=== PATIENT | female | born 1955 | race Caucasian/White ===

== ENCOUNTER 2020-03-28 09:20 | Inpatient (IN) | payer OTHER ==
[~2020-03-28] VITALS: Ht 154.9 cm; Wt 61.2 kg
--- NOTE | ~2020-03-28 | DS ---
[facility] [address], [place] [address] Draft ADMISSION DATE: 03/28/2020 DISCHARGE DATE: 03/31/2020 REASON FOR ADMISSION: This 64-year-old white woman is a patient of Dr. Espinal in [facility] generally. I had seen her over a month ago anticipating colonoscopy for intractable diarrhea. Due to the COVID epidemic, schedule of her procedure has been delayed. She is concurrently noted to have hyperthyroidism under the care of Dr. Carrasco, reproduction technician in [place], [place]. Management has included methimazole for thyroid suppression over the past 1-1/2 years. To her knowledge, there is no plan of definitive treatment of radioactive iodine ablation or surgery. Her diarrhea has previously been considered likely related to hyperthyroidism. I recently performed thyroid function tests on her including TSH, T4 and T3, which did not show thyrotoxicosis from a chemical basis. She was feeling markedly dehydrated with intractable diarrhea and on that basis, called me and I directly admitted to the hospital for further evaluation and treatment to include management of her dehydration. PAST MEDICAL HISTORY: In addition to hyperthyroidism with methimazole suppression includes cholecystectomy in the past. PERTINENT PHYSICAL EXAMINATION: GENERAL: A pleasant white woman, who was not severely distressed after 2 L of crystalloid solution. VITAL SIGNS: Temperature is 97.5, pulse 60, blood pressure 156/62, O2 saturations 100% on room air. NECK: Normal. CHEST: Clear. HEART: Regular without murmur. ABDOMEN: Nondistended and nontender. LABORATORY DATA: White count 7.5, hematocrit 39.6, platelets 253,000, lymphocytes 16.4. Chem profile as noted. Subsequent labs including coronavirus was negative and C difficile assessment negative as well. HOSPITAL COURSE: PATIENT NAME: SELENA WISE DISCHARGE SUMMARY DATE OF : 55 REPORT #: [id number] PHYSICIAN: CHELSY HIGGINBOTHAM MD PCP: KRISTAL ESPINAL MD REPORT IS CONFIDENTIAL AND NOT TO BE RELEASED WITHOUT AUTHORIZATION [facility] [address], [place] [address] Draft It was acknowledged that the patient had a history at one time of C difficile, which was treated and considered cured. I thought that this may represent a C difficile recurrence was considered and on that basis, stool studies were obtained. A colonoscopy had been anticipated previously for evaluation of her diarrhea as well. A thought of hyperthyroidism accounting for diarrhea was also considered. However, her thyroid function tests recently obtained were normal and that was considered quite a bit less likely. Review of the literature showed methimazole do not have a high chance of causing diarrhea either. She was aggressively fluid resuscitated and ultimately underwent colonoscopy, which included visualization of the entire colon and the terminal ileum. There was no lesion to account for diarrhea based on that evaluation. Biopsies were obtained to assess for microscopic colitis. She was treated with Questran 4 g p.o. q.i.d., which did help her symptoms quite a bit. Mindful that she has had cholecystectomy and the possibility of choleretic diarrhea was considered relatively high. By the time of discharge, she is ambulating well, tolerating a regular diet, has cleared her clinical dehydration. C difficile assessment was negative. COVID-19 testing was negative and celiac disease panel (gluten enteropathy panel) is still pending. She is due to see her reproduction technician, Dr. Carrasco on Friday. I am hopeful that a summary will be available regarding her visit at that time as well and I have given the patient a business card to help assist in transmitting that information. FOLLOWUP PLAN: She will return to see me in approximately 10 days. By then pathology report and celiac disease panel will have returned. We will assess the durability of her improvement with Questran administration as well. DISCHARGE MEDICATIONS: 1. Cholestyramine 4 g p.o. q.i.d., #1 20 packets or preferably a jar with refills as needed. 2. Methimazole 5 mg p.o. q.2 days at bedtime. 3. Metoprolol 100 mg p.o. b.i.d. 4. Lisinopril hydrochlorothiazide 08/28.5 two tabs p.o. daily. 5. Simvastatin 2 mg p.o. daily at bedtime. 6. Alprazolam 0.5 mg tablets q.8 hours as needed for anxiety. 7. Zyrtec 1 tab p.o. daily. 8. Dicyclomine 20 mg p.o. q.i.d. as needed for GI upset. 9. Fluticasone spray two sprays daily for allergy relief. 10. Nexium 1 cap p.o. daily. 11. Lactaid 3000 unit tablet t.i.d. with meals. PATIENT NAME: SELENA WISE DISCHARGE SUMMARY DATE OF : 55 REPORT #: [id number] PHYSICIAN: CHELSY HIGGINBOTHAM MD PCP: KRISTAL ESPINAL MD REPORT IS CONFIDENTIAL AND NOT TO BE RELEASED WITHOUT AUTHORIZATION [address] [address] Draft DISCHARGE DIAGNOSES: 1. Diarrhea with electrolyte disturbance (hypokalemia) related to protracted diarrhea, uncertain etiology. 2. History of hyperthyroidism, controlled currently on methimazole. 3. Anxiety. 4. Hypertension. 5. Dyslipidemia. 6. History of cholecystectomy. MD WENDI Braga/GUERITA /[id number] cc: MD Kristal Heredia MD Copies: NYASIA CARRASCO MD, JONATHAN MD ~ PATIENT NAME: SELENA WISE DISCHARGE SUMMARY DATE OF : 55 REPORT #: [id number] PHYSICIAN: CHELSY HIGGINBOTHAM MD PCP: KRISTAL ESPINAL MD REPORT IS CONFIDENTIAL AND NOT TO BE RELEASED WITHOUT AUTHORIZATION
--- OUTSIDE RECORDS SUMMARY | ~2020-03-28 | XMS | Encounter Summary ---
Demographics + + + | Address | [address] | | | [place] [address] | + + + | Home Phone | | + + + | Preferred Language | Unknown | + + + | Marital Status | | + + + | Jew Affiliation | Unknown | + + + | Race | Unknown | + + + | Ethnic Group | Unknown | + + + Author + + + | Author | [facility] | | | and [place] | + + + | Organization | [facility] | | | and [place] | + + + | Address | Unknown | + + + | Phone | Unavailable | + + + Support + + +---------+ + | Name | Relationship | Address | Phone | + + +---------+ + | Dre Cutler | ECON | Unknown | | + + +---------+ + Care Team Providers + +------+ + | Care Engraver Pantograph Name | Role | Phone | + +------+ + | Cristian Espinal | PCP | | | MD | | | + +------+ + Reason for Referral Evaluate & Treat (Urgent) +--------+ + + + + + | Status | Reason | Specialty | Diagnoses / | Referred By | Referred To | | | | | Procedures | Contact | Contact | +--------+ + + + + + | Closed | Specialty | Gastroenterol | Diagnoses | [facility] | [facility]ia, | | | Services | ogy | Abdominal | MD Jesus | MD Jesus | | | Required | | pain, | [address] | [address] | | | | | unspecified | [address]VD | [place], | | | | | site Loss | [place], [place] | [place] [address] | | | | | of weight | [address] | Phone: | | | | | Diarrhea | Phone: | [phone] | | | | | Procedures | [phone] | Fax: | | | | | CO | Fax: | [phone] | | | | | COLONOSCOPY, | [phone] | | | | | | DIAGNOSTIC | | | | | | | CO | | | | | | | COLONOSCOPY, | | | | | | | BIOPSY CO | | | | | | | COLONOSCOPY, | | | | | | | REMV | | | | | | | BURT HERNANDEZ | | | +--------+ + + + + + Diagnostic/Screening (Routine) +--------+--------+ + + + + | Status | Reason | Specialty | Diagnoses / | Referred By | Referred To | | | | | Procedures | Contact | Contact | +--------+--------+ + + + + | Closed | | Radiology | Diagnoses | [place], | [address] | | | | | Abdominal | MD Jesus | [address] | | | | | pain, | [address] | [place], | | | | | unspecified | [address] | [place] [address] | | | | | site Loss | [place], [place] | Phone: | | | | | of weight | [address] | [phone] | | | | | Diarrhea | Phone: | Fax: | | | | | Procedures | [phone] | [phone] | | | | | CT Abdomen | Fax: | | | | | | Pelvis w | [phone] | | | | | | Contrast | | | +--------+--------+ + + + + Reason for Visit + + + | Reason | Comments | + + + | Follow-up | | + + + Evaluate & Treat (Routine) +--------+--------+ + + + + | Status | Reason | Specialty | Diagnoses / | Referred By | Referred To | | | | | Procedures | Contact | Contact | +--------+--------+ + + + + | Closed | | Gastroenterol | Diagnoses | Teddy, | [facility]ia, | | | | ogy | IBS, GERD, | Cristian | MD Jesus | | | | | Reflux/ pcp | MD Jesus | [address] | | | | | Teddy/ pt/ | [address] | [place], | | | | | [place] | [address] | [place] [address] | | | | | Procedures | Penny, | Phone: | | | | | OFFICE VISIT | [place] | [phone] | | | | | REGULAR | [address] | Fax: | | | | | | Phone: | [phone] | | | | | | [phone] | | | | | | | Fax: | | | | | | | [phone] | | +--------+--------+ + + + + Encounter Details +--------+---------+ + + + | Date | Type | Department | Care Team | Description | +--------+---------+ + + + | 07/05/ | Office | [facility] | Jesus Fletcher MD | Abdominal pain, | | 2013 | Visit | GASTROENTEROLOGY | [address] | unspecified site | | | | [address] | [place], [place] | (Primary Dx); Loss | | | | [address] [place], [place] | [address] | of weight; Diarrhea | | | | [address] | [phone] | | | | | [phone] | | | +--------+---------+ + + + Social History + +-------+ +--------+------+ | Tobacco Use | Types | Packs/Day | Years | Date | | | | | Used | | + +-------+ +--------+------+ | Never Smoker | | | | | + +-------+ +--------+------+ + +---+---+---+ | Smokeless Tobacco: | | | | | Never Used | | | | + +---+---+---+ + + +---------+ + | Alcohol Use | Drinks/Week | oz/Week | Comments | + + +---------+ + | No | | | | + + +---------+ + + + + | Sex Assigned at | Date Recorded | | | | + + + | Not on file | | + + + + + + + | Job Start Date | Occupation | Industry | + + + + | Not on file | Not on file | Not on file | + + + + + + + + | Travel History | Travel Start | Travel End | + + + + + + | No recent travel history available. | + + documented as of this encounter Last Filed Vital Signs + + + + + | Vital Sign | Reading | Time Taken | Comments | + + + + + | Blood Pressure | 112/70 | 07/05/2014 12:53 PM | | | | | PDT | | + + + + + | Pulse | 64 | 07/05/2014 12:53 PM | | | | | PDT | | + + + + + | Temperature | 37.1 C (98.7 F) | 07/05/2014 12:53 PM | | | | | PDT | | + + + + + | Respiratory Rate | 14 | 07/05/2014 12:53 PM | | | | | PDT | | + + + + + | Oxygen Saturation | - | - | | + + + + + | Inhaled Oxygen | - | - | | | Concentration | | | | + + + + + | Weight | 56.7 kg (125 lb) | 07/05/2014 12:53 PM | | | | | PDT | | + + + + + | Height | 162.6 cm (5' 4") | 07/05/2014 12:53 PM | | | | | PDT | | + + + + + | Body Mass Index | 21.46 | 07/05/2014 12:53 PM | | | | | PDT | | + + + + + documented in this encounter Progress Notes Jesus Fletcher MD - 07/05/2014 1:46 PM PDT Subjective: Patient ID: Desire Cutler is a 59 y.o. female. HPI Current Outpatient Prescriptions on File Prior to Visit Medication Sig Dispense Refill ALPRAZolam (XANAX) 0.5 mg tablet Take 0.5 mg by mouth Twice daily as needed. B Okfgvvx-F-Hkcga Acid (B COMPLEX + C TR PO) Take by mouth Daily. CETIRIZINE HCL PO Take by mouth. CRANBERRY Take 2 tablets by mouth Daily. dicyclomine (BENTYL) 10 mg capsule Take 1-2 capsules every 6 hours as needed for abdomi nal cramping 100 capsule 3 estradiol (ESTRACE) 1 mg tablet Take 1 mg by mouth Daily. eszopiclone (LUNESTA) 2 MG TABS Take 2 mg by mouth nightly. fluticasone (FLONASE) 50 mcg/nasal spray 1 spray by Nasal route Daily. lisinopril-hydrochlorothiazide (PRINZIDE,ZESTORETIC) 10-12.5 MG per tablet Take 1 table t by mouth Daily. metoprolol (LOPRESSOR) 100 MG tablet Take 100 mg by mouth 2 times daily. MULTIPLE VITAMIN PO Take by mouth Daily. ondansetron (ZOFRAN) 4 mg tablet Take 1 tablet by mouth every 8 hours as needed for Rob sea. 20 tablet 0 simvastatin (ZOCOR) 40 mg tablet Take 40 mg by mouth nightly. UNABLE TO FIND Med Name: digestive advantage lactose defense zolpidem (AMBIEN) 10 mg tablet Take 10 mg by mouth nightly as needed. 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) Essential hypertension, benign Allergic rhinitis due to pollen Sprain of neck Postcholecystectomy syndrome GERD (gastroesophageal reflux disease) IBS (irritable bowel syndrome) Past Surgical History Procedure Date Appendectomy Cholecystectomy 2009 Hysterectomy, total abdominal Abdomino-vaginal vesical neck suspension section, classic Bunionectomy bilateral Other 2009, 2012 bilateral thumb surgery Colonoscopy 2009 Dr Plum[place] in [place] Family History Problem Relation Age of Onset Heart disease Father Heart attack Father Hypertension Mother History Social History Marital Status: Spouse Name: N/A Number of Children: N/A Years of Education: 13 Occupational [employer] Social History Main Topics Smoking status: Never Smoker Smokeless tobacco: Never Used Alcohol Use: No Drug Use: Yes Special: Marijuana Sexually Active: Not on file Other Topics Concern Not on file Social History Narrative No narrative on file Review of Systems Constitutional: Positive for unexpected weight change. HENT: Negative. Eyes: Negative. Respiratory: Negative. Cardiovascular: Negative. Gastrointestinal: Abd pain; diarrhea Genitourinary: Negative. Musculoskeletal: Negative. Neurological: Negative. Hematological: Negative. Objective: Physical Exam Constitutional: She is oriented to person, place, and time. She appears well-developed and well-nourished. HENT: Head: Normocephalic and atraumatic. Eyes: Conjunctivae normal are normal. Neck: Neck supple. Cardiovascular: Normal rate, regular rhythm and normal heart sounds. Pulmonary/Chest: Effort normal and breath sounds normal. Abdominal: Soft. Bowel sounds are normal. Neurological: She is alert and oriented to person, place, and time. Skin: Skin is warm and dry. Psychiatric: She has a normal mood and affect. Her behavior is normal. Judgment and thought content normal. Assessment: This office note has been dictated. Plan: This office note has been dictated. Jesus Dickson MD - 0 07/05/2014 12:00 AM PDT GASTROENTEROLOGY [address] [place] [address] FAX: [phone] OFFICE VISIT OUTPATIENT GI FOLLOWUP EVALUATION HISTORY OF PRESENT ILLNESS: This is a 59-year-old white female with a history of irritable bowel syndrome and C diff colitis, who presents for a followup. The patient has had irritab le bowel with associated abdominal pain that the patient describes as gas and bloating. How ever, she does describe a new type of pain in the right lower quadrant, which is intermitte nt for the past 6 to 8 months. The pain is not better or worse by anything in particular an d is unaffected by eating or by activity. The patient denies fevers, chills, sweats, but do es have intermittent diarrhea. She has been diagnosed with C diff in the past and completed a dose of Flagyl last month. Recent stool studies after the course of Flagyl have been neg ative for C diff, and the patient states that she feels a little better with no diarrhea no w for 3-4 days, but states that loose stools are intermittent and some days she can have 3- 4 loose stools a day. She also complains of approximately a 20-pound weight loss in the pas t year, some of which may be intentional in that she is walking, exercising, and has change d her diet. She otherwise denies melena, hematochezia. Her last colonoscopy was approximate ly 4 years ago, at which time a few polyps were taken off. Of note, the patient states that the pain does awaken her night at times. ASSESSMENT AND PLAN 1. ABDOMINAL PAIN: Unclear etiology, however, differential diagnosis includes irritable bow el syndrome, neoplasm malignant versus benign, inflammatory bowel disease, especially Crohn 's disease. I recommend that we repeat colonoscopy to evaluate for Crohn's disease as well as a recurrence of the polyps on the right side. I also feel that we need to get a CT scan of the abdomen and pelvis with contrast, if the colonoscopy is unremarkable. Indications, r isks, benefits, and possible complications were discussed with the patient, who wishes to p roceed with colonoscopy at this time. Will also check routine labs, including CBC, chem donaldson el, and sedimentation rate and a CRP. 2. DIARRHEA: Most likely related to irritable bowel syndrome, diarrhea predominant. However , will obtain random colon biopsies to evaluate for microscopic colitis during colonoscopy. Otherwise, would continue colestyramine as well as Imodium p.r.n. Jesus Fletcher MD / JAIME JOB #: [id number] signed by Jesus Fletcher MD at 07/06/2014 2:03 PM PDTdocument ed in this encounter Plan of Treatment + +---------+--------+ + + | Name | Type | Priori | Associated Diagnoses | Order Schedule | | | | ty | | | + +---------+--------+ + + | CT Abdomen Pelvis w | Imaging | Routin | Abdominal pain, | Expected: | | Contrast | | e | unspecified site | 07/05/2014, Expires: | | | | | Loss of weight | 07/05/2015 | | | | | Diarrhea | | + +---------+--------+ + + + + +--------+ + + | Name | Type | Priori | Associated Diagnoses | Order Schedule | | | | ty | | | + + +--------+ + + | Ambulatory referral | Outpatient | Routin | Abdominal pain, | Expected: | | to Gastroenterology | Referral | e | unspecified site | 07/07/2014, Expires: | | ([facility]) | | | Loss of weight | 07/05/2015 | | | | | Diarrhea | | + + +--------+ + + documented as of this encounter Results Comprehensive Metabolic Panel (07/05/2014 1:56 PM PDT) + + + + + + | Component | Value | Ref Range | Performed | Pathologist | | | | | At | Signature | + + + + + + | Na | 135 (L) | 136 - 149 | [facility] | | | | | mmol/L | [facility] | | | | | | [facility] | | | | | | [facility] - | | | | | | LABORATORY | | + + + + + + | K | 3.3 (L) | 3.5 - 5.1 | [facility] | | | | | mmol/L | [facility] | | | | | | [facility] | | | | | | [facility] - | | | | | | LABORATORY | | + + + + + + | Cl | 98 | 98 - 109 mmol/L | [facility] | | | | | | [facility] | | | | | | [facility] | | | | | | [facility] - | | | | | | LABORATORY | | + + + + + + | CO2 | 29 | 24 - 31 mmol/L | [facility] | | | | | | [facility] | | | | | | [facility] | | | | | | [facility] - | | | | | | LABORATORY | | + + + + + + | Anion Gap | 8 | 3 - 16 mmol/L | [facility] | | | | | | [facility] | | | | | | [facility] | | | | | | [facility] - | | | | | | LABORATORY | | + + + + + + | Glucose | 98 | 70 - 109 mg/dL | [facility] | | | | | | [facility] | | | | | | [facility] | | | | | | [facility] - | | | | | | LABORATORY | | + + + + + + | BUN | 9 | 7 - 18 mg/dL | [facility] | | | | | | [facility] | | [facility] | | | [facility] | | | | | | [facility] - | | | | | | LABORATORY | | + + + + + + | Creatinine | 0.74 | 0.60 - 1.30 | [facility] | | | | | mg/dL | [facility] | | | | | | [facility] | | | | | | C[facility] - | | | | | | LABORATORY | | + + + + + + | eGFR if not | >60Comment: GLOMERULAR | >=60 | [facility] | | | | FILTRATION | mL/min/1.73m2 | [facility] | | | RWANDAN | RATE,ESTIMATED | | MEDICAL | | | | mL/min/1.69c0Zmko than | | CENTER - | | | | 60 Chronic kidney | | LABORATORY | | | | disease,if found over a | | | | | | 3-month period.Less than | | | | | | 15 Kidney failureFor | | | | | | | | | | | | Americans,multiply the | | | | | | calculated GFR by 1.21. | | | | | | | | | | + + + + + + | Calcium | 9.3 | 8.3 - 10.5 | [facility] | | | | | mg/dL | [facility] | | | | | | [facility] | | | | | | C[facility] - | | | | | | LABORATORY | | + + + + + + | Albumin | 4.1 | 3.2 - 5.0 g/dL | [facility] | | | | | | [facility] | | | | | | [facility] | | | | | | [facility] - | | | | | | LABORATORY | | + + + + + + | Bilirubin | 0.7 | 0.1 - 1.5 mg/dL | [facility] | | | Total | | | [facility] | | | | | | [facility] | | | | | | C[facility] - | | | | | | LABORATORY | | + + + + + + | Total | 7.7 | 6.0 - 7.8 g/dL | [facility] | | | Protein | | | [facility] | | | | | | [facility]ICAL | | | | | | CENTER - | | | | | | LABORATORY | | + + + + + + | AST | 25 | 10 - 42 U/L | [facility] | | | | | | [facility] | | | | | | [facility] | | | | | | CENTER - | | | | | | LABORATORY | | + + + + + + | ALT | 20 | 6 - 45 U/L | [facility] | | | | | | [facility] | | | | | | [facility] | | | | | | CENTER - | | | | | | LABORATORY | | + + + + + + | Alkaline | 68 | 40 - 110 U/L | [facility] | | | Phosphatase | | | [facility] | | | | | | [facility] | | | | | | CENTER - | | | | | | LABORATORY | | + + + + + + | Globulin | 3.6 | g/dL | [facility] | | | | | | [facility] | | | | | | [facility] | | | | | | [facility] - | | | | | | LABORATORY | | + + + + + + | Albumin/Flor | 1.1 | | [facility] | | | bulin Ratio | | | [facility] | | | | | | [facility] | | | | | | CENTER - | | | | | | LABORATORY | | + + + + + + | BUN/Creatin | 12.2 | | [facility] | | | ine Ratio | | | [facility] | | | | | | [facility] | | | | | | CENTER - | | | | | | LABORATORY | | + + + + + + + + | Specimen | + + | Blood | + + + + + + + | Performing | Address | City/State/Zipcode | Phone Number | | Organization | | | | + + + + + | [facility] | [address] | [place] | [phone] | | [facility] | | [address] | | | - LABORATORY | | | | + + + + + | [facility] | [address] | [place] | | | [facility] | | [address] | | | - LABORATORY | | | | + + + + + C-Reactive Protein (07/05/2014 1:56 PM PDT) + +-------+ + + + | Component | Value | Ref Range | Performed | Pathologist | | | | | At | Signature | + +-------+ + + + | CRP | 2.40 | <8.00 mg/L | [facility] | | | | | | [facility] | | | | | | [facility] | | | | | | CENTER - | | | | | | LABORATORY | | + +-------+ + + + + + | Specimen | + + | Blood | + + + + + + + | Performing | Address | City/State/Zipcode | Phone Number | | Organization | | | | + + + + + | [facility] | [address] | [place] | [phone] | | [facility] | | [address] | | | - LABORATORY | | | | + + + + + | [facility] | [address] | [place], [place] | | | [facility] | | [id number] [place] [address] | | | - LABORATORY | | | | + + + + + Sedimentation Rate (07/05/2014 1:56 PM PDT) + +--------+ + + + | Component | Value | Ref Range | Performed | Pathologist | | | | | At | Signature | + +--------+ + + + | Erythrocyte | 36 (H) | <30 mm/hr | [facility] | | | | | | [facility] | | | [facility] | | | MEDICAL | | | on Rate | | | CENTER - | | | | | | LABORATORY | | + +--------+ + + + + + | Specimen | + + | Blood | + + + + + + + | Performing | Address | City/State/Zipcode | Phone Number | | Organization | | | | + + + + + | [facility] | [address] | [place] | [phone] | | [facility] | | [address] | | | - LABORATORY | | | | + + + + + | [facility] | [address] | [place] | | | [facility] | | [address] | | | - LABORATORY | | | | + + + + + CBC with Differential (07/05/2014 1:56 PM PDT) + +-------+ + + + | Component | Value | Ref Range | Performed | Pathologist | | | | | At | Signature | + +-------+ + + + | WBC | 5.8 | 4.0 - 11.0 K/uL | [facility] | | | | | | [facility] | | | | | | MEDICAL | | | | | | CENTER - | | | | | | LABORATORY | | + +-------+ + + + | RBC | 4.18 | 3.70 - 5.20 | [facility] | | | | | M/uL | [facility] | | | | | | MEDICAL | | | | | | CENTER - | | | | | | LABORATORY | | + +-------+ + + + | Hemoglobin | 13.7 | 11.5 - 16.0 | [facility] | | | | | g/dL | [facility] | | | | | | MEDICAL | | | | | | CENTER - | | | | | | LABORATORY | | + +-------+ + + + | Hematocrit | 39.2 | 34.0 - 47.0 % | [facility] | | | | | | [facility] | | | | | | MEDICAL | | | | | | CENTER - | | | | | | LABORATORY | | + +-------+ + + + | MCV | 93.7 | 83.0 - 101.0 fL | [facility] | | | | | | [facility] | | | | | | MEDICAL | | | | | | CENTER - | | | | | | LABORATORY | | + +-------+ + + + | MCH | 32.7 | 28.0 - 35.0 pg | [facility] | | | | | | [facility] | | | | | | MEDICAL | | | | | | CENTER - | | | | | | LABORATORY | | + +-------+ + + + | MCHC | 34.9 | 32.0 - 36.0 | [facility] | | | | | g/dL | [facility] | | | | | | MEDICAL | | | | | | CENTER - | | | | | | LABORATORY | | + +-------+ + + + | RDW-CV | 12.5 | <15.0 % | [facility] | | | | | | [facility] | | | | | | MEDICAL | | | | | | CENTER - | | | | | | LABORATORY | | + +-------+ + + + | Platelet | 259 | 140 - 440 K/uL | [facility] | | | Count | | | [facility] | | | | | | MEDICAL | | | | | | CENTER - | | | | | | LABORATORY | | + +-------+ + + + | MPV | 8.8 | fL | [facility] | | | | | | [facility] | | | | | | MEDICAL | | | | | | CENTER - | | | | | | LABORATORY | | + +-------+ + + + | % | 64.7 | 45.0 - 82.0 % | [facility] | | | Neutrophils | | | [facility] | | | | | | MEDICAL | | | | | | CENTER - | | | | | | LABORATORY | | + +-------+ + + + | % | 24.9 | 20.0 - 45.0 % | [facility] | | | Lymphocytes | | | [facility] | | | | | | MEDICAL | | | | | | CENTER - | | | | | | LABORATORY | | + +-------+ + + + | % Monocytes | 8.1 | 4.0 - 12.0 % | [facility] | | | | | | [facility] | | | | | | MEDICAL | | | | | | CENTER - | | | | | | LABORATORY | | + +-------+ + + + | % | 1.4 | 0.0 - 5.0 % | [facility] | | | Eosinophils | | | [facility] | | | | | | MEDICAL | | | | | | CENTER - | | | | | | LABORATORY | | + +-------+ + + + | % Basophils | 0.9 | 0.0 - 1.0 % | [facility] | | | | | | [facility] | | | | | | MEDICAL | | | | | | CENTER - | | | | | | LABORATORY | | + +-------+ + + + | Absolute | 3.80 | 1.80 - 8.50 | [facility] | | | Neutrophils | | K/uL | [facility] | | | | | | MEDICAL | | | | | | CENTER - | | | | | | LABORATORY | | + +-------+ + + + | Absolute | 1.40 | 0.60 - 3.20 | [facility] | | | Lymphocytes | | K/uL | [facility] | | | | | | MEDICAL | | | | | | CENTER - | | | | | | LABORATORY | | + +-------+ + + + | Absolute | 0.50 | 0.00 - 1.00 | [facility] | | | Monocytes | | K/uL | [facility] | | | | | | MEDICAL | | | | | | CENTER - | | | | | | LABORATORY | | + +-------+ + + + | Absolute | 0.10 | 0.00 - 0.40 | [facility] | | | Eosinophils | | K/uL | [facility] | | | | | | MEDICAL | | | | | | CENTER - | | | | | | LABORATORY | | + +-------+ + + + | Absolute | 0.10 | 0.00 - 0.10 | [facility] | | | Basophils | | K/uL | [facility] | | | | | | MEDICAL | | | | | | CENTER - | | | | | | LABORATORY | | + +-------+ + + + + + | Specimen | + + | Blood | + + + + + + + | Performing | Address | City/State/Zipcode | Phone Number | | Organization | | | | + + + + + | [facility] | [address] | [place], [place] | [phone] | | [facility] | | [address] | | | - LABORATORY | | | | + + + + + | [facility] | [address] | [place], [place] | | | [facility] | | [address] [place] [address] | | | - LABORATORY | | | | + + + + + documented in this encounter Visit Diagnoses + + | Diagnosis | + + | Abdominal pain, unspecified site - Primary | + + | Loss of weight | + + | Diarrhea | + + documented in this encounter
--- OUTSIDE RECORDS SUMMARY | ~2020-03-28 | XMS | Encounter Summary ---
Demographics + + + | Address | [address] | | | [place] [address] | + + + | Home Phone | | + + + | Preferred Language | Unknown | + + + | Marital Status | | + + + | Samaritan Affiliation | Unknown | + + + | Race | Unknown | + + + | Ethnic Group | Unknown | + + + Author + + + | Author | [facility] | | | and [place] | + + + | Organization | [facility] | | | and [place] | [...] Team Providers + +------+ + | Care Cap And Hat Production Supervisor Name | Role | Phone | + +------+ + | Cristian Espinal | PCP | | | MD | | | + +------+ + Reason for Visit +--------+ + | Reason | Comments | +--------+ + | Other | medication for c.diff treatment | +--------+ + Encounter Details +--------+ + + + + | Date | Type | Department | Care Team | Description | +--------+ + + + + | 06/14/ | Telephone | [facility] | Jesus Fletcher MD | Other (medication | | 2013 | | GASTROENTEROLOGY | [address] [facility] | for c.diff | | | | [address] [facility] | [place], [place] | treatment) | | | | [address] [place], [place] | [address] | | | | | [address] | [phone] | | | | | [phone] | | | +--------+ + + + + Social History + +-------+ [...] + + documented as of this encounter Plan of Treatment Not on filedocumented as of this encounter Visit Diagnoses Not on filedocumented in this encounter"
--- OUTSIDE RECORDS SUMMARY | ~2020-03-28 | XMS | Encounter Summary ---
Demographics + + + | Address | [address] | | | [place] [address] | + + + | Home Phone | | + + + | Preferred Language | Unknown | + + + | Marital Status | | + + + | Lutheran Affiliation | Unknown | + + + | Race | Unknown | + + + | Ethnic Group | Unknown | + + + Author + + + | Author | [facility] | | | and [place] | + + + | Organization | [facility] | | | and [place] [...] Team Providers + +------+ + | Care Housing Project Manager Name | Role | Phone | + +------+ + | Cristian Espinal | PCP | | | MD | | | + +------+ + Reason for Visit +--------+ + | Reason | Comments | +--------+ + | Other | symptoms of diarrhea and abdominal cramping | +--------+ + Encounter Details +--------+ + + + + | Date | Type | Department | Care Team | Description | +--------+ + + + + | 06/28/ | Telephone | [facility] | Jesus Fletcher MD | Other (symptoms of | | 2013 | | GASTROENTEROLOGY | [address] | diarrhea and | | | | [address] [facility] | [place], [place] | abdominal cramping) | | | | [address] [place], [place] | [address] | | | | | [address] | [phone] | | | | | [phone] | | | +--------+ + + + [...]
--- OUTSIDE RECORDS SUMMARY | ~2020-03-28 | XMS | Encounter Summary ---
Demographics + + + | Address | [address] | | | [place] [address] | + + + | Home Phone | | + + + | Preferred Language | Unknown | + + + | Marital Status | | + + + | Cheondoism Affiliation | Unknown | + + + | Race | Unknown | + + + | Ethnic Group | Unknown | + + + Author + + + | Author | [facility] | | | and [place] | + + + | Organization | [facility] | | | and [place] [...] Team Providers + +------+ + | Care Fish Net Maker Name | Role | Phone | + +------+ + PCP | Unavailable | + +------+ + Encounter Details +--------+ + + + + | Date | Type | Department | Care Team | Description | +--------+ + + + + | 01/25/ | Hospital | [facility] | Nikita Cuevas, | | | 2001 - | Encounter | [facility] | [address] | | | | | [facility] [address] | [address] | | | 01/27/ | | [address], | [place] [address] | | | 2001 | | [place] [address] | [phone] | | | | | [phone] | | | +--------+ + + + + Social History + +-------+ +--------+------+ | Tobacco Use | Types | Packs/Day | Years | Date | | | | | Used | | + +-------+ +--------+------+ | Never Assessed | | | | | + +-------+ +--------+------+ + + + | Sex Assigned at [...]
--- OUTSIDE RECORDS SUMMARY | ~2020-03-28 | XMS | Clinical Summary ---
Demographics + + + | Address | [address] | | | [place] [address] | + + + | Home Phone | | + + + | Preferred Language | Unknown | + + + | Marital Status | | + + + | Orthodoxy Affiliation | Unknown | + + + | Race | Unknown | + + + | Ethnic Group | Unknown | + + + Author + + + | Author | [facility] | | | and [place] | + + + | Organization | [facility] | | | and [place] [...] Team Providers + +------+ + | Care Operational Risk Manager Name | Role | Phone | + +------+ + | Cristian Espinal | PCP | | | MD | | | + +------+ + Allergies + + + + + + | Active Allergy | Reactions | Severity | Noted | Comments | | | | | Date | | + + + + + + | Codeine | Nausea And Vomiting | Low | 06/08/20 | | | | | | 13 | | + + + + + + | Sulfa Antibiotics | Hives, Rash | Low | 06/08/20 | | | | | | 13 | | + + + + + + Medications + + + +---------+------+------+-------+ | Medication | Sig | Dispensed | Refills | Star | End | Statu | | | | | | t | Date | s | | | | | | Date | | | + + + +---------+------+------+-------+ | ALPRAZolam (XANAX) | Take 0.5 mg by mouth | | 0 | | | Activ | | 0.5 mg tablet | Twice daily as | | | | | e | | | needed. | | | | | | + + + +---------+------+------+-------+ | fluticasone | 1 spray by Nasal | | 0 | | | Activ | | (FLONASE) 50 | route Daily. | | | | | e | | mcg/nasal spray | | | | | | | + + + +---------+------+------+-------+ | eszopiclone | Take 2 mg by mouth | | 0 | | | Activ | | (LUNESTA) 2 MG TABS | nightly. | | | | | e | + + + +---------+------+------+-------+ | metoprolol | Take 100 mg by mouth | | 0 | | | Activ | | (LOPRESSOR) 100 MG | 2 times daily. | | | | | e | | tablet | | | | | | | + + + +---------+------+------+-------+ | estradiol | Take 1 mg by mouth | | 0 | | | Activ | | (ESTRACE) 1 mg | Daily. | | | | | e | | tablet | | | | | | | + + + +---------+------+------+-------+ | simvastatin | Take 40 mg by mouth | | 0 | | | Activ | | (ZOCOR) 40 mg tablet | nightly. | | | | | e | + + + +---------+------+------+-------+ | | Take 1 tablet by | | 0 | | | Activ | | lisinopril-hydrochlo | mouth Daily. | | | | | e | | rothiazide | | | | | | | | (PRINZIDE,ZESTORETIC | | | | | | | | ) 10-12.5 MG per | | | | | | | | tablet | | | | | | | + + + +---------+------+------+-------+ | dicyclomine | Take 1-2 capsules | 100 | 3 | 07/2 | | Activ | | (BENTYL) 10 mg | every 6 hours as | capsule | | 4/20 | | e | | capsule | needed for abdominal | | | 13 | | | | | cramping | | | | | | + + + +---------+------+------+-------+ | zolpidem (AMBIEN) | Take 10 mg by mouth | | 0 | | | Activ | | 10 mg tablet | nightly as needed. | | | | | e | + + + +---------+------+------+-------+ | CETIRIZINE HCL PO | Take by mouth. | | 0 | | | Activ | | | | | | | | e | + + + +---------+------+------+-------+ | UNABLE TO FIND | Med Name: digestive | | 0 | | | Activ | | | advantage lactose | | | | | e | | | defense | | | | | | + + + +---------+------+------+-------+ | MULTIPLE VITAMIN | Take by mouth | | 0 | | | Activ | | PO | Daily. | | | | | e | + + + +---------+------+------+-------+ | B Yxyendn-C-Mguqe | Take by mouth | | 0 | | | Activ | | Acid (B COMPLEX + C | Daily. | | | | | e | | TR PO) | | | | | | | + + + +---------+------+------+-------+ | CRANBERRY | Take 2 tablets by | | 0 | | | Activ | | | mouth Daily. | | | | | e | + + + +---------+------+------+-------+ | ondansetron | Take 1 tablet by | 20 | 0 | 08/0 | | Activ | | (ZOFRAN) 4 mg tablet | mouth every 8 hours | tablet | | 7/20 | | e | | | as needed for | | | 14 | | | | | Nausea. | | | | | | + + + +---------+------+------+-------+ Active Problems + + + | Problem | Noted Date | + + + | Reflux esophagitis | | + + + | Essential hypertension, benign | | + + + | GERD (gastroesophageal reflux disease) | | + + + Family History + + +------+ + | Medical History | Relation | Name | Comments | + + +------+ + | Heart attack | Father | | | + + +------+ + | Heart disease | Father | | | + + +------+ + | Hypertension | Mother | | | + + +------+ + + +------+ + + | Relation | Name | Status | Comments | + +------+ + + | Father | | | 1979 | | | | (Age | | | | | 60) | | + +------+ + + | Mother | | | 1995 | | | | (Age | | | | | 76) | | + +------+ + + Social History + +-------+ +--------+------+ [...] recent travel history available. | + + Last Filed Vital Signs + + + + + | Vital Sign | Reading | Time Taken | Comments | + + + + + | Blood Pressure | 116/85 | 07/07/2014 11:55 AM | | | | | PDT | | + + + + + | Pulse | 50 | 07/07/2014 11:55 AM | | | | | PDT | | + + + + + | Temperature | 36.6 C (97.8 F) | 07/07/2014 8:00 AM | | | | | PDT | | + + + + + | Respiratory Rate | 16 | 07/07/2014 11:55 AM | | | | | PDT | | + + + + + | Oxygen Saturation | 100% | 07/07/2014 11:55 AM | | | | | PDT | | + + + + + | Inhaled Oxygen | - | - | | | Concentration | | | | + + + + + | Weight | 56.7 kg (125 lb) | 07/07/2014 8:00 AM | | | | | PDT | | + + + + + | Height | 154.9 cm (5' 1") | 07/07/2014 8:00 AM | | | | | PDT | | + + + + + | Body Mass Index | 23.62 | 07/07/2014 8:00 AM | | | | | PDT | | + + + + + Plan of Treatment + + + + + | Health Maintenance | Due Date | Last Done | Comments | + + + + + | Vaccine: | | | | | Dtap/Tdap/Td (1 - | 6 | | | | Tdap) | | | | + + + + + | Cervical Cancer | | | | | Screening (Pap) | 5 | | | + + + + + | Vaccine: Zoster (1 | | | | | of 2) | 5 | | | + + + + + | Breast Cancer | | | | | Screening | 0 | | | + + + + + | Vaccine: Influenza | | | | | (Season Ended) | 0 | | | + + + + + Results Not on filefrom Last 3 Months Insurance +-------+--------+ +--------+ + +------+ | Payer | Benefi | Subscriber | Effect | Phone | Address | Type | | | t Plan | ID | morenita | | | | | | / | | Dates | | | | | | Group | | | | | | +-------+--------+ +--------+ + +------+ | MODA | MODA | [id number] | | [phone] | [address] | PPO | | | HEALTH | | [phone] | | | | | | esent | | [place], | | | | [place] | | | | [place] [address] | | | | [place] | | | | | | +-------+--------+ +--------+ + +------+ + +--------+ +--------+ + + | Guarantor Name | Accoun | Relation to | Date | Phone | Billing Address | | | t Type | Patient | of | | | | | | | | | | + +--------+ +--------+ + + | Desire Cutler | Person | Self | [birth year] | [address] | | | al/Fidel | | 1955 | [phone] | [place] | | | [place] | | | [address] (Home) | [address] | + +--------+ +--------+ + + Advance Directives + + + + + | Type | Date Recorded | Patient | Explanation | | | | Gauge Maker | | + + + + + | Power of | | | | | Political Science Faculty Member | | | | + + + + + | Advance | 07/07/2014 8:18 | | | | Directive | AM | | | + + + + +
--- OUTSIDE RECORDS SUMMARY | ~2020-03-28 | XMS | Encounter Summary ---
Demographics + + + | Address | [address] | | | [place] [address] | + + + | Home Phone | | + + + | Preferred Language | Unknown | + + + | Marital Status | | + + + | Mormonism Affiliation | Unknown | + + + | Race | Unknown | + + + | Ethnic Group | Unknown | + + + Author + + + | Author | [facility] | | | and [place] | + + + | Organization | [facility] | | | and [place] | [...] Team Providers + +------+ + | Care Camp Housekeeper Name | Role | Phone | + +------+ + | Cristian Espinal | PCP | | | MD | | | + +------+ + Reason for Visit + + + | Reason | Comments | + + + | Diarrhea | | + + + Encounter Details +--------+ + + + + | Date | Type | Department | Care Team | Description | +--------+ + + + + | 06/29/ | Telephone | [facility] | Jesus Fletcher MD | Diarrhea | | 2013 | | GASTROENTEROLOGY | [address] | | | | | [address] [facility] | [place], [place] | | | | | [address] [place], [place] | [address] | | | | | [address] | [phone] | | | | | [phone] | | | +--------+ + + + [...] as of this encounter Plan of Treatment + + +--------+ + + | Name | Type | Priori | Associated Diagnoses | Order Schedule | | | | ty | | | + + +--------+ + + | Clostridium | Microbiolog | Routin | Diarrhea | Expected: | | difficile A and B | y | e | | 06/29/2014, Expires: | | EIA | | | | 06/29/2015 | + + +--------+ + + documented as of this encounter Visit Diagnoses + + | Diagnosis | + + | Diarrhea - Primary | + + documented in this encounter"
--- OUTSIDE RECORDS SUMMARY | ~2020-03-28 | XMS | Encounter Summary ---
Demographics + + + | Address | [address] | | | [place] [address] | + + + | Home Phone | | + + + | Preferred Language | Unknown | + + + | Marital Status | | + + + | Zoroastrianism Affiliation | Unknown | + + + | Race | Unknown | + + + | Ethnic Group | Unknown | + + + Author + + + | Author | [facility] | | | and [place] | + + + | Organization | [facility] | | | and [place] [...] Team Providers + +------+ + | Care Radiation Control Worker Name | Role | Phone | + +------+ + PCP | Unavailable | + +------+ + Encounter Details +--------+ + + + + | Date | Type | Department | Care Team | Description | +--------+ + + + + | 01/03/ | Hospital | [facility] | | | | 2002 | Encounter | [facility] | | | | | | [address] | | | | | | [place] | | | | | | [address] | | | | | | [phone] | | | +--------+ + + + [...]
--- OUTSIDE RECORDS SUMMARY | ~2020-03-28 | XMS | Encounter Summary ---
Demographics + + + | Address | [address] | | | [place] [address] | + + + | Home Phone | | + + + | Preferred Language | Unknown | + + + | Marital Status | | + + + | Lutheran Affiliation | Unknown | + + + | Race | Unknown | + + + | Ethnic Group | Unknown | + + + Author + + + | Author | [facility] | | | and [place] | + + + | Organization | [facility] | | [...] Team Providers + +------+ + | Care Headlight Adjuster Name | Role | Phone | + +------+ + | Cristian Espinal | PCP | | | MD | | | + +------+ + Encounter Details +--------+ + + + + | Date | Type | Department | Care Team | Description | +--------+ + + + + | 06/08/ | Abstract | [facility] | Jesus Fletcher MD | | | 2012 | | Gastroenterology | [address] | | | | | [address] | [place], [place] | | | | | [place], | [address] | | | | | [place] [address] | [phone] | | | | | [phone] | | | +--------+ + + + [...]
--- OUTSIDE RECORDS SUMMARY | ~2020-03-28 | XMS | Encounter Summary ---
Demographics + + + | Address | [address] | | | [place] [address] | + + + | Home Phone | | + + + | Preferred Language | Unknown | + + + | Marital Status | | + + + | Rastafari Affiliation | Unknown | + + + | Race | Unknown | + + + | Ethnic Group | Unknown | + + + Author + + + | Author | [facility] | | | and [place] | + + + | Organization | [facility] | | | and [place] [...] Team Providers + +------+ + | Care Manager Welding Name | Role | Phone | + +------+ + | Cristian Espinal | PCP | | | MD | | | + +------+ + Reason for Visit + + + | Reason | Comments | + + + | Diarrhea | | + + + | Abdominal Pain | cramping | + + + | Flank Pain | cramping | + + + Encounter Details +--------+---------+ + + + | Date | Type | Department | Care Team | Description | +--------+---------+ + + + | 06/09/ | Office | [facility] | Jesus Fletcher MD | GERD | | 2012 | Visit | GASTROENTEROLOGY | [address] [facility] | (gastroesophageal | | | | [address] [facility] | [place], [place] | reflux disease) | | | | [address] [place], [place] | [address] | (Primary Dx); | | | | [address] | [phone] | Diarrhea; IBS | | | | [phone] | | (irritable bowel | | | | | | syndrome) | +--------+---------+ + + + Social History [...] + + + | Blood Pressure | 116/72 | 06/09/2013 1:51 PM | | | | | PDT | | + + + + + | Pulse | 58 | 06/09/2013 1:51 PM | | | | | PDT | | + + + + + | Temperature | - | - | | + + + + + | Respiratory Rate | - | - | | + + + + + | Oxygen Saturation | - | - | | + + + + + | Inhaled Oxygen | - | - | | | Concentration | | | | + + + + + | Weight | 63.5 kg (140 lb) | 06/09/2013 1:51 PM | | | | | PDT | | + + + + + | Height | 162.6 cm (5' 4") | 06/09/2013 1:51 PM | | | | | PDT | | + + + + + | Body Mass Index | 24.03 | 06/09/2013 1:51 PM | | | | | PDT | | + + + + + documented in this encounter Progress Notes Jesus Fletcher MD - 06/09/2013 4:55 PM PDT Subjective: Patient ID: Desire Cutler is a 58 y.o. female. HPI This office note has been dictated. Past Medical History Diagnosis Date Pain in joint, multiple sites Reflux esophagitis Panic disorder without agoraphobia Other specified diffuse disease of connective tissue Impacted cerumen Essential hypertension, benign Allergic rhinitis due to pollen Sprain of neck Postcholecystectomy syndrome GERD (gastroesophageal reflux disease) Allergies: Allergies Allergen Reactions Codeine Sulfa Antibiotics Active Problems: * No active hospital problems. * Blood pressure 116/72, pulse 58, height 1.626 m (5' 4"), weight 63.504 kg (140 lb), not cur rently . Review of Systems Constitutional: Negative. HENT: Negative. Eyes: Negative. Respiratory: Negative. Cardiovascular: Negative. Gastrointestinal: Positive for heartburn and diarrhea. Genitourinary: Negative. Musculoskeletal: Negative. Skin: Negative. Neurological: Negative. Psychiatric/Behavioral: Negative. Physical Exam Constitutional: She is oriented to person, place, and time. She appears well-developed and well-nourished. HENT: Head: Normocephalic and atraumatic. Cardiovascular: Normal rate, regular rhythm and normal heart sounds. Pulmonary/Chest: Effort normal and breath sounds normal. Abdominal: Soft. Bowel sounds are normal. Neurological: She is alert and oriented to person, place, and time. Skin: Skin is warm and dry. Psychiatric: She has a normal mood and affect. Her behavior is normal. Jesus Fletcher 06/09/2013 Review of Systems Objective: Physical Exam Assessment: See dictation Plan: See dictation Jesus Dickson MD - 0 06/09/2013 12:00 AM [facility] GASTROENTEROLOGY [address] [facility] [address] [place] [address] FAX: [phone] OFFICE VISIT OUTPATIENT GI EVALUATION CHIEF COMPLAINT: Diarrhea and reflux. HISTORY OF PRESENT ILLNESS: This is a 58-year-old white female who complains of intermitten t diarrhea for the past 3 years, at times up to 6-8 watery stools daily. She denies melena, hematochezia, and states that she has not had diarrhea for the past 2 weeks, though. She underwent a colonoscopy 3 years ago, which endoscopically was normal except for excision of 1 small polyp which revealed hyperplastic polyp on pathology. She did have her gallbladder taken out at that same time; however, the diarrhea predated the cholecystectomy. She has b een taking colestipol at times with variable results, but states that Imodium taken p.r.n. does help with the diarrhea. She has had a small amount of weight loss recently, but has be en changing her diet and exercising, thus is intentional. She denies fevers, chills or swea ts and denies any recent travel. She does state that she has tried being off her medication s to see if that was causing her diarrhea, and there was no effect. She also complains of abdominal pain in the bilateral lower quadrants with occasional cramp s, at times awakening her at night. She does have a history of irritable bowel syndrome and feels this may be related to her colon spasms. She has never tried an antispasm medication . She also has had intermittent gastroesophageal reflux, however, this is well controlled a t this time on Nexium. Her insurance does not cover Nexium, thus is looking for an alternat morenita. She had upper endoscopy 3 years ago, which was unremarkable with negative biopsies and no evidence of Flores's. She otherwise feels well and does not use tobacco or drink alcohol. SHE IS LACTOSE INTOLERA NT, but does occasionally eat cheese. ASSESSMENT AND PLAN 1. GASTROESOPHAGEAL REFLUX DISEASE: Well controlled at this time on Nexium; however, the p atient needs another medication that may be covered by insurance. Will give her Prilosec 40 mg twice a day half an hour before breakfast and dinner, and she should adopt an antireflux diet with frequent small volume meals and early dinner. If she continues to have problems with reflux then will consider repeating upper endoscopy at that time. 2. DIARRHEA: The patient has been without diarrhea for 2 weeks, for no obvious reason, thus I suspect loose stools may be due to her irritable bowel. Infection or C diff colitis very unlikely. No loose stools at this time, so will not order stool studies; however, will re commend increasing fiber in the diet to bulk up the stools, as well as Imodium p.r.n. for he r diarrhea. She also should maintain a lactose-free diet. If the diarrhea does recur, then will consider repeating colonoscopy to evaluate for a microscopic colitis. This appears un likely since, as mentioned, she has been diarrhea free for 2 weeks. 3. IRRITABLE BOWEL SYNDROME: Will prescribe Bentyl 10 mg, 1-2 tablets every 6 hours as need ed for abdominal cramps. Her recent small amount of weight loss is intentional; however, if her cramps or pain persist, especially with further unintentional weight loss, then will c onsider obtaining a CT scan of the abdomen and pelvis. The patient was instructed to follow up with me in the GI clinic if her symptoms persist, in 8-10 weeks, or call if she has any questions. Jesus Fletcher MD AGUSTINA / JAIME JOB #: [id number] signed by Jesus Fletcher MD at 08/12/2013 12:48 PM PDTdocument ed in this encounter Plan of Treatment Not on filedocumented as of this encounter Visit Diagnoses + + | Diagnosis | + + | GERD (gastroesophageal reflux disease) - Primary Esophageal reflux | + + | Diarrhea | + + | IBS (irritable bowel syndrome) Irritable bowel syndrome | + + documented in this encounter
--- OUTSIDE RECORDS SUMMARY | ~2020-03-28 | XMS | Encounter Summary ---
Demographics + + + | Address | [address] | | | [place] [address] | + + + | Home Phone | | + + + | Preferred Language | Unknown | + + + | Marital Status | | + + + | Jain Affiliation | Unknown | + + + | Race | Unknown | + + + | Ethnic Group | Unknown | + + + Author + + + | Author | [facility] | | | and [place] | + + + | Organization | [facility] | | | and [place] [...] Team Providers + +------+ + | Care Senior Security Architect Name | Role | Phone | + +------+ + PCP | Unavailable | + +------+ + Encounter Details +--------+ + + + + | Date | Type | Department | Care Team | Description | +--------+ + + + + | 05/06/ | Hospital | [facility] | | | | 1999 | Encounter | MED CTR XRAY [address] | | | | | | [address] | | | | | | [place] [address] | | | | | | [phone] | | | +--------+ + + + [...]
--- OUTSIDE RECORDS SUMMARY | ~2020-03-28 | XMS | Encounter Summary ---
Demographics + + + | Address | [address] | | | [place] [address] | + + + | Home Phone | | + + + | Preferred Language | Unknown | + + + | Marital Status | | + + + | Adventist Affiliation | Unknown | + + + | Race | Unknown | + + + | Ethnic Group | Unknown | + + + Author + + + | Author | [facility] | | | and [place] | + + + | Organization | [facility] | | | and [...] Team Providers + +------+ + | Care Electron Beam Photo Mask Maker Name | Role | Phone | + +------+ + | Cristian Espinal | PCP | | | MD | | | + +------+ + Reason for Visit Auth/Cert +--------+--------+ + + + + | Status | Reason | Specialty | Diagnoses / | Referred By | Referred To | | | | | Procedures | Contact | Contact | +--------+--------+ + + + + | Closed | | | Diagnoses | | | | | | | Diarrhea | | | | | | | Loss of | | | | | | | weight | | | | | | | Abdominal | | | | | | | pain, | | | | | | | unspecified | | | | | | | site | | | | | | | Abdominal | | | | | | | pain, | | | | | | | unspecified | | | | | | | site | | | | | | | [789.00] | | | | | | | Loss of | | | | | | | weight | | | | | | | [783.21] | | | | | | | Diarrhea | | | | | | | [787.91] | | | | | | | Procedures | | | | | | | COLONOSCOPY | | | +--------+--------+ + + + + Encounter Details +--------+---------+ + + + | Date | Type | Department | Care Team | Description | +--------+---------+ + + + | 07/07/ | Surgery | [facility] | Jesus Fletcher MD | COLONOSCOPY | | 2013 | | MED CTR MP INTRA OP | [address] | | | | | [address] | [place] | | | | | [place] | [address] | | | | | [address] | [phone] | | | | | [phone] | | | +--------+---------+ + + + [...] + + + documented in this encounter Discharge Instructions Instructions Elyse Sequeira RN - 07/06/2014Formatting of this note might be different f rom the original. Patient Discharge Instructions after an Endoscopy Procedure You may resume your regular diet after discharge. Do not drive, operate machinery, make critical decisions or do activities that require co ordination or balance for 24hrs. Resume normal medications unless otherwise instructed. If biopsies were taken, the physician s office will contact you within 7-10 days. If a colonoscopy was performed, then you may continue to expel large amounts of air from your rectum. Please call the physician who did your procedure at [phone] if you have any questions or experience any of the following: Increasing abdominal pain, nausea, or vomiting. Chills and fever over 101F. New abdominal swelling or bloating. Signs of rectal bleeding (black or red stool. If you cannot get a hold of your physician, then call the [facility] [phone] . If necessary, report to the Emergency Department at [facility]. Quit smoking: If you smoke or have smoked within the last year, quitting is the most import ant thing you can do to protect and improve your health. Colonoscopy Colonoscopyis used to view the inside of your lower digestive tract (colon and rectum). I t can help screen for colon cancer and can also help find the source of abdominal pain,ble eding,and changes in bowel habits. The test is usually done in the hospital on an outpatie nt basis. During the exam, the doctor can remove a small tissue sample ( a biopsy) for testi ng. Small growths, such as polyps, may also be removed during colonoscopy. A camera attached to a flexible tube with a viewing lens is used to take video pictures. Getting Ready Be sure to tell your doctor about any medications you take. Alsotell your doctor about any health conditions you may have. Discuss the risks of the test with your doctor. These includebleeding and bowel punctu re. Your rectum and colon must be empty for the test. So be sure tofollow the diet and bow el prep instructions exactly. If you don t, the test may need to be rescheduled. Ask your doctor whether you need to have a friend or family member prepared to drive you home after the test. Colonoscopy provides an inside view of the entire colon. During the Test You are given sedating (relaxing) medication through an IV line.You may be drowsy or c ompletely asleep. The procedure takes 30minutes or longer. The doctor performs a digital rectal exam to check for anal andrectal problems. The re ctum is lubricated and the scope inserted. If you are awake, you may have a feeling similar to needing to have a bowelmovement. Y ou may also feel pressure as air is pumped into the colon. It s okay to pass gas during th e procedure. After the Test You may discuss the results with your doctor right away or at a future visit. Try to pass all the gas right after the test to help prevent bloating and cramping. After the test, you can go back to your normal eating andother activities. Risks and Possible Complications Include: Bleeding A puncture or tear in the colon Risks of anesthesia [id number] [facility], [address] [place] [address], [place] [address]. All rights reserve d. This information is not intended as a substitute for professional medical care. Always fo llow your healthcare professional's instructions. documented in this encounter Medications at Time of Discharge + + + +---------+ + + | Medication | Sig | Dispensed | Refills | Start | End Date | | | | | | Date | | + + + +---------+ + + | ALPRAZolam (XANAX) | Take 0.5 mg by mouth | | 0 | | | | 0.5 mg tablet | Twice daily as | | | | | | | needed. | | | | | + + + +---------+ + + | B Hxnmcbi-I-Zylcy | Take by mouth | | 0 | | | | Acid (B COMPLEX + C | Daily. | | | | | | TR PO) | | | | | | + + + +---------+ + + | CETIRIZINE HCL PO | Take by mouth. | | 0 | | | + + + +---------+ + + | CRANBERRY | Take 2 tablets by | | 0 | | | | | mouth Daily. | | | | | + + + +---------+ + + | dicyclomine | Take 1-2 capsules | 100 | 3 | 06/09/20 | | | (BENTYL) 10 mg | every 6 hours as | capsule | | 13 | | | capsule | needed for abdominal | | | | | | | cramping | | | | | + + + +---------+ + + | estradiol | Take 1 mg by mouth | | 0 | | | | (ESTRACE) 1 mg | Daily. | | | | | | tablet | | | | | | + + + +---------+ + + | eszopiclone | Take 2 mg by mouth | | 0 | | | | (LUNESTA) 2 MG TABS | nightly. | | | | | + + + +---------+ + + | fluticasone | 1 spray by Nasal | | 0 | | | | (FLONASE) 50 | route Daily. | | | | | | mcg/nasal spray | | | | | | + + + +---------+ + + | | Take 1 tablet by | | 0 | | | | lisinopril-hydrochlo | mouth Daily. | | | | | | rothiazide | | | | | | | (PRINZIDE,ZESTORETIC | | | | | | | ) 10-12.5 MG per | | | | | | | tablet | | | | | | + + + +---------+ + + | metoprolol | Take 100 mg by mouth | | 0 | | | | (LOPRESSOR) 100 MG | 2 times daily. | | | | | | tablet | | | | | | + + + +---------+ + + | MULTIPLE VITAMIN | Take by mouth | | 0 | | | | PO | Daily. | | | | | + + + +---------+ + + | ondansetron | Take 1 tablet by | 20 | 0 | 06/23/20 | | | (ZOFRAN) 4 mg tablet | mouth every 8 hours | tablet | | 14 | | | | as needed for | | | | | | | Nausea. | | | | | + + + +---------+ + + | simvastatin | Take 40 mg by mouth | | 0 | | | | (ZOCOR) 40 mg tablet | nightly. | | | | | + + + +---------+ + + | UNABLE TO FIND | Med Name: digestive | | 0 | | | | | advantage lactose | | | | | | | defense | | | | | + + + +---------+ + + | zolpidem (AMBIEN) | Take 10 mg by mouth | | 0 | | | | 10 mg tablet | nightly as needed. | | | | | + + + +---------+ + + documented as of this encounter Plan of Treatment Not on filedocumented as of this encounter Procedures + +--------+ + + + | Procedure Name | Priori | Date/Time | Associated Diagnosis | Comments | | | ty | | | | + +--------+ + + + | COLONOSCOPY | | 07/07/2014 | Diarrhea Loss of | | | | | 10:43 AM | weight Abdominal | | | | | PDT | pain, unspecified | | | | | | site | | + +--------+ + + + | COLONOSCOPY | Routin | 07/07/2014 | | Results for this | | | e | 10:34 AM | | procedure are in the | | | | PDT | | results section. | + +--------+ + + + documented in this encounter Results COLONOSCOPY (07/07/2014 10:34 AM PDT) + + | Specimen | + + | | + + + + -+ | Narrative | Performed At | + + -+ | | [facility] | | GastroenterologyPatient Name: Desire CutlreProcedure Date: 07/07/2014 | [facility] | | 10:34 AMMRN: [id number] #: [id number] of : | | | 5Admit Type: AmbulatoryAge: 59Room: [facility]Gender: FemaleNote | | | Status: FinalizedAttending MD: Jesus Fletcher, MDProcedure: | | | ColonoscopyIndications: Abdominal pain in the right lower | | | quadrant, Clinically significant diarrhea | | | of unexplained originProviders: Jesus Fletcher MD, | | | Margret Hodgson RN, Beata | | | OMichele, TechnicianReferring MD: Asif Espinal MD | | | (Referring MD)Medicines: Midazolam 5 mg IV, Meperidine 100 | | | mg IVComplications: No immediate complications.Procedure: | | | Pre-Anesthesia Assessment: - Prior to the procedure, a History | | | and Physical was performed, and patient medications and | | | allergies were reviewed. The patient is competent. The risks | | | and benefits of the procedure and the sedation options and | | | risks were discussed with the patient. All questions were | | | answered and informed consent was obtained. Patient identification and | | | proposed procedure were verified by the physician, the nurse | | | and the trailer technician in the pre-procedure area in the endoscopy | | | suite. Mental Status Examination: alert and oriented. Airway | | | Examination: normal oropharyngeal airway and neck mobility. | | | Respiratory Examination: clear to auscultation. CV Examination: | | | normal. Prophylactic Antibiotics: The patient does not require | | | prophylactic antibiotics. Prior Anticoagulants: The patient | | | has taken no previous anticoagulant or antiplatelet agents. ASA | | | Grade Assessment: II - A patient with mild systemic disease. After | | | reviewing the risks and benefits, the patient was deemed in | | | satisfactory condition to undergo the procedure. The anesthesia | | | plan was to use moderate sedation / analgesia (conscious | | | sedation). Immediately prior to administration of medications, | | | the patient was re-assessed for adequacy to receive sedatives. | | | The heart rate, respiratory rate, oxygen saturations, blood | | | pressure, adequacy of pulmonary ventilation, and response to | | | care were monitored throughout the procedure. The physical | | | status of the patient was re-assessed after the procedure. After | | | I obtained informed consent, the scope was passed under direct | | | vision. Throughout the procedure, the patient's blood pressure, | | | pulse, and oxygen saturations were monitored continuously. The | | | endoscope was introduced through the anus and advanced to the | | | terminal ileum, with identification of the appendiceal orifice | | | and IC valve. The colonoscopy was performed without difficulty. | | | The patient tolerated the procedure well. The quality of the | | | bowel preparation was good.Findings: The perianal and digital | | | rectal examinations were normal. The colon (entire examined | | | portion) appeared normal. Biopsies were taken with a cold | | | forceps from the right colon and left colon for evaluation of | | | microscopic colitis. Verification of patient identification for the | | | specimen was done by the physician and nurse using the patient's | | | name and date. Estimated blood loss was minimal. | | | Non-bleeding internal hemorrhoids were found during retroflexion and | | | were small. No additional abnormalities were found on | | | retroflexion. The terminal ileum appeared normal.Impression: | | | - The entire examined colon is normal. Biopsied. - | | | Non-bleeding internal hemorrhoids. - The examined portion of the | | | ileum was normal.Recommendation: - Patient has a contact number | | | available for emergencies. The signs and symptoms of potential | | | delayed complications were discussed with the patient. Return | | | to normal activities tomorrow. Written discharge instructions | | | were provided to the patient. - Regular diet. - Discharge | | | patient to home. - Continue present medications. - Await | | | pathology results. - Repeat colonoscopy in 10 years for | | | screening purposes. - Return to GI clinic PRN. - The | | | findings and recommendations were discussed with the patient.Jesus | | | Carter Fletcher MD07/07/2014 11:20 AMNumber of Addenda: 0Note Initiated On: | | | 07/07/2014 10:34 AM [facility], [address] | | | [place] [address] | | | symptoms of potential delayed complications were discussed with the | | | patient. Return to normal activities tomorrow. Written discharge | | | instructions were provided to the patient. | | | - Regular diet. | | | - Discharge patient to home. | | | - Continue present medications. | | | - Await pathology results. | | | - Repeat colonoscopy in 10 years for screening purposes. | | | - Return to GI clinic PRN. | | | - The findings and recommendations were discussed with the patient. | | |Jesus Fletcher MD | | |07/07/2014 11:20 AM | | |Number of Addenda: 0 | | |Note Initiated On: 07/07/2014 10:34 AM | | | [facility], [address] [place], [place] | | | [address] | | + + -+ + + | Transcriptions | + + | WanderPoncho elizabeth - 07/07/2014 12:00 AM PDT | + + + +---------+ + + | Performing | Address | City/State/Zipcode | Phone Number | | Organization | | | | + +---------+ + + | [facility] | | | | + +---------+ + + documented in this encounter Visit Diagnoses + + | Diagnosis | + + | Diarrhea | + + | Loss of weight | + + | Abdominal pain, unspecified site | + + documented in this encounter Administered Medications + +---------+ +------+-------+------+ | Medication Order | MAR | Action | Dose | Rate | Site | | | Action | Date | | | | + +---------+ +------+-------+------+ | lactated ringers (LR) infusion | New Bag | 07/07/20 | | 100 | | | at 100 mL/hr, Intravenous, | | 14 8:53 | | mL/hr | | | CONTINUOUS, Starting Samina 07/07/14 | | AM PDT | | | | | at 0900, Pre-op | | | | | | + +---------+ +------+-------+------+ +---+---+ | | | +---+---+ + +-------+ +--------+---+---+ | meperidine (DEMEROL) 100 mg/mL | Given | 07/07/20 | 100 mg | | | | injection PRN, Pain, Starting | | 14 10:47 | | | | | Samina 07/07/14 at 1057 | | AM PDT | | | | + +-------+ +--------+---+---+ +---+---+ | | | +---+---+ + +-------+ +------+---+---+ | midazolam (VERSED) 5 mg/mL | Given | 07/07/20 | 2 mg | | | | injection PRN, Anxiety, Starting | | 14 10:54 | | | | | Samina 07/07/14 at 1049 | | AM PDT | | | | + +-------+ +------+---+---+ +-------+ +------+---+---+ | Given | 07/07/20 | 1 mg | | | | | 14 10:51 | | | | | | AM PDT | | | | +-------+ +------+---+---+ | Given | 07/07/20 | 2 mg | | | | | 14 10:49 | | | | | | AM PDT | | | | +-------+ +------+---+---+ +---+---+ | | | +---+---+ documented in this encounter
--- OUTSIDE RECORDS SUMMARY | ~2020-03-28 | XMS | Encounter Summary ---
Demographics + + + | Address | [address] | | | [place] [address] | + + + | Home Phone | | + + + | Preferred Language | Unknown | + + + | Marital Status | | + + + | Latter Day Affiliation | Unknown | + + + | Race | Unknown | + + + | Ethnic Group | Unknown | + + + Author + + + | Author | [facility] | | | and [place] | + + + | Organization | [facility] | | | and [place] | [...] Team Providers + +------+ + | Care Logistic Manager Name | Role | Phone | + +------+ + | Cristian Espinal | PCP | | | MD | | | + +------+ + Reason for Visit + + + | Reason | Comments | + + + | Irritable Bowel | | | Syndrome | | + + + | Diarrhea | | + + + Evaluate & Treat (Routine) +--------+--------+ + + + + | Status | Reason | Specialty | Diagnoses / | Referred By | Referred To | | | | | Procedures | Contact | Contact | +--------+--------+ + + + + | Closed | | Gastroenterol | Diagnoses | Teddy, | Chance, | | | | ogjaycee | IBS, GERD, | Cristian | MD Jesus | | | | | Reflux/ pcp | MD Jesus | [address] | | | | | Teddy/ pt/ | [address] | [place], | | | | | [place] | [place] | [place] [address] | | | | | Procedures | Penny, | Phone: | | | | | OFFICE VISIT | [place] | [phone] | | | | | REGULAR | [address] | Fax: | | | | | | Phone: | [phone] | | | | | | [phone] | | | | | | | Fax: | | | | | | | [phone] | | +--------+--------+ + + + + Encounter Details +--------+---------+ + + + | Date | Type | Department | Care Team | Description | +--------+---------+ + + + | 06/10/ | Office | [facility] | Jesus Fletcher MD | C. difficile colitis | | 2013 | Visit | GASTROENTEROLOGY | [address] [facility] | (Primary Dx) | | | | [address] [facility] | [place], [place] | | | | | [address] [place], [place] | [address] | | | | | [address] | [phone] | | | | | [phone] | | | +--------+---------+ + + + [...] + + + | Blood Pressure | 128/74 | 06/10/2014 1:39 PM | | | | | PDT | | + + + + + | Pulse | 78 | 06/10/2014 1:39 PM | | | | | PDT | | + + + + + | Temperature | - | - | | + + + + + | Respiratory Rate | 16 | 06/10/2014 1:39 PM | | | | | PDT | | + + + + + | Oxygen Saturation | - | - | | + + + + + | Inhaled Oxygen | - | - | | | Concentration | | | | + + + + + | Weight | 59.6 kg (131 lb 8 | 06/10/2014 1:39 PM | | | | oz) | PDT | | + + + + + | Height | 162.6 cm (5' 4") | 06/10/2014 1:39 PM | | | | | PDT | | + + + + + | Body Mass Index | 22.57 | 06/10/2014 1:39 PM | | | | | PDT | | + + + + + documented in this encounter Progress Notes Jesus Fletchre MD - 06/10/2014 2:38 PM PDT Subjective: Patient ID: Desire Cutler is a 59 y.o. female. HPI Current Outpatient Prescriptions on File Prior to Visit Medication Sig Dispense Refill ALPRAZolam (XANAX) 0.5 mg tablet Take 0.5 mg by mouth Twice daily as needed. dicyclomine (BENTYL) 10 mg capsule Take 1-2 [...] 100 mg by mouth 2 times daily. [] omeprazole (PRILOSEC) 20 mg capsule Take 2 capsules by mouth 2 times daily (b efore meals). 360 capsule 3 simvastatin (ZOCOR) 40 mg tablet Take 40 mg by mouth nightly. Allergies Allergen Reactions Codeine Nausea And Vomiting [...] bilateral Other 2009, 2012 bilateral thumb surgery Family History Problem Relation Age of Onset Heart disease Father Heart attack Father Hypertension Mother History Social History Marital Status: Spouse Name: N/A Number of Children: N/A Years of Education: 13 Occupational [employer] Social History Main Topics Smoking status: Never Smoker Smokeless tobacco: Never Used Alcohol Use: No Drug Use: Yes Special: Marijuana Sexually Active: Not on file Other Topics Concern Not on file Social History Narrative No narrative on file Review of Systems Constitutional: Negative. HENT: Negative. Eyes: Negative. Respiratory: Negative. Cardiovascular: Negative. Gastrointestinal: Negative for abdominal distention. Abd cramps; diarrhea Genitourinary: Negative. Musculoskeletal: Negative. Neurological: Negative. Hematological: Negative. Objective: Physical Exam Constitutional: She is oriented to person, place, and time. She appears well-developed and well-nourished. HENT: Head: Normocephalic and atraumatic. Eyes: Conjunctivae normal are normal. Neck: Neck supple. Cardiovascular: Normal rate, regular rhythm and normal heart sounds. Pulmonary/Chest: Effort normal and breath sounds normal. Abdominal: Soft. Bowel sounds are normal. She exhibits no distension and no mass. There is no tenderness. There is no rebound and no guarding. Neurological: She is alert and oriented to person, place, and time. Skin: Skin is warm and dry. Psychiatric: She has a normal mood and affect. Her behavior is normal. Judgment and thought content normal. Assessment: This office note has been dictated. Plan: This office note has been dictated. Jesus Dickson MD - 0 06/10/2014 12:00 AM PDT GASTROENTEROLOGY [address] [place] [address] FAX: [phone] OFFICE VISIT OUTPATIENT GI EVALUATION CHIEF COMPLAINT: Diarrhea. HISTORY OF PRESENT ILLNESS: This is a 59-year-old white female who has had problems interm ittently with diarrhea, irritable bowel syndrome and gastroesophageal reflux disease. Her [facility] physician recently placed her on antibiotics for an unknown condition, and soon after that developed diarrhea. She was tested for C difficile, which was positive, and now has been on Flagyl for 9 days. The patient states that she is feeling better, with decrease d abdominal cramps and decreased diarrhea, however, still is having 1 to 2 loose stools alessandro ry morning. There is no melena, hematochezia, fevers, chills, or sweats. The patient states that she is also starting to eat more and regain her appetite. She has lost 26 pounds in t he last year, intentionally. She is also taking probiotics. ASSESSMENT AND PLAN: CLOSTRIDIUM DIFFICILE COLITIS: Recommend that she continue Flagyl 500 mg p.o. t.i.d. to complete a 14-day course. If the patient is still having diarrhea on the last day of her medications she can call the GI clinic and we may give her a few extra days of Flagyl. Otherwise, she should call us immediately if diarrhea recurs after finishing e Flagyl. She should continue the probiotics on a daily basis. I also advised her to avoid unnecessary antibiotics. If symptoms worse she can call the GI clinic or present to the ER. Jesus Fletcher MD / JAIME JOB #: [id number] signed by Jesus Fletcher MD at 06/13/2014 7:44 PM PDTdocument ed in this encounter Plan of Treatment Not on filedocumented as of this encounter Visit Diagnoses + + | Diagnosis | + + | C. difficile colitis - Primary Intestinal infection due to clostridium difficile | + + documented in this encounter
--- OUTSIDE RECORDS SUMMARY | ~2020-03-28 | XMS | Encounter Summary ---
Demographics + + + | Address | [address] | | | [place] [address] | + + + | Home Phone | | + + + | Preferred Language | Unknown | + + + | Marital Status | | + + + | Mandaen Affiliation | Unknown | + + + | Race | Unknown | + + + | Ethnic Group | Unknown | + + + Author + + + | Author | [facility] | | | and [place] | + + + | Organization | [facility] | | | and [place] [...] Team Providers + +------+ + | Care Perpetual Inventory Clerk Name | Role | Phone | + +------+ + | Cristian Espinal | PCP | | | MD | | | + +------+ + Encounter Details +--------+ + + + + | Date | Type | Department | Care Team | Description | +--------+ + + + + | 07/05/ | Hospital | [facility] | Jesus Fletcher MD | Abdominal pain, | | 2013 | Encounter | [facility] | [address] | unspecified site; | | | | [address] | [place] | Loss of weight; | | | | [place] | [address] | Diarrhea | | | | [address] | [phone] | | | | | [phone] | | | +--------+ + + + [...] + + documented as of this encounter Medications at Time of Discharge [...] + + +---------+ + + | B Reqhpti-M-Schgp | Take by mouth | | 0 [...] 1-2 capsules | 100 | 3 | // | | | (BENTYL) 10 mg | [...] | + +--------+ + + + | SEDIMENTATION RATE | Routin | 07/05/2014 | Abdominal pain, | Results for this | | | e | 1:56 PM | unspecified site | procedure are in the | | | | PDT | Loss of weight | results section. | | | | | Diarrhea | | + +--------+ + + + | CBC WITH | Routin | 07/05/2014 | Abdominal pain, | Results for this | | DIFFERENTIAL | e | 1:56 PM | unspecified site | procedure are in the | | | | PDT | Loss of weight | results section. | | | | | Diarrhea | | + +--------+ + + + | C-REACTIVE PROTEIN | Routin | 07/05/2014 | Abdominal pain, | Results for this | | | e | 1:56 PM | unspecified site | procedure are in the | | | | PDT | Loss of weight | results section. | | | | | Diarrhea | | + +--------+ + + + | COMPREHENSIVE | Routin | 07/05/2014 | Abdominal pain, | Results for this | | METABOLIC PANEL | e | 1:56 PM | unspecified site | procedure are in the | | | | PDT | Loss of weight | results section. | | | | | Diarrhea | | + +--------+ + + + documented in this encounter Results Comprehensive Metabolic Panel (07/05/2014 1:56 PM PDT) + + + + + + | Component | Value | Ref Range | Performed | Pathologist | | | | | At | Signature | + + + + + + | Na | 135 (L) | 136 - 149 | [facility] | | | | | mmol/L | [facility] | | | | | | [facility] | | | | | | CENTER - | | | | | | LABORATORY | | + + + + + + | K | 3.3 (L) | 3.5 - 5.1 | [facility] | | | | | mmol/L | [facility] | | | | | | [...] mL/min/1.73m2 | [facility] | | | [facility]OTT[facility] | RATE,ESTIMATED | | MEDICAL | | | | mL/min/1.93p0Tlfh than | | CENTER - | | [...] 4.1 | 3.2 - 5.0 g/dL | [facility] | | | | | | [facility] | | | | | | MEDICAL | | | | | | CENTER - | | | | | | LABORATORY | | + + + + + + | Bilirubin | 0.7 | 0.1 - 1.5 mg/dL | [facility] | | | Total | | | [facility] | | [...] + | [facility] | [address] | [place], [place] | [phone] | | [facility] | | [address] | | | - LABORATORY | | | | + + + + + | [facility] | [address] | [place], [place] | | | [facility] | | [address] [place] [address] | | | - LABORATORY | | [...] + | [facility] | [address] | [place] | [phone] | | [facility] | | [address] | | | - LABORATORY | | | | + + + + + | [facility] | [address] | [place], [place] | | | [facility] | | [address] | | | - LABORATORY | | | | + + + + + Sedimentation Rate (07/05/2014 1:56 PM PDT) + +--------+ + + + | Component | Value | Ref Range | Performed | Pathologist | | | | | At | Signature | + +--------+ + + + | Erythrocyte | 36 (H) | <30 mm/hr | [facility] | | | | | | [facility] | | | Sedimentati | | | [...] + | [facility] | [address] | [place] | [phone] | | [facility] | | [address] | | | - LABORATORY | | | | + + + + + | [facility] | [address] | [place], [place] | | | [facility] | | [address] | | | - LABORATORY | [...] | | | | M/uL | [facility] | | | | [...] | Neutrophils | | K/uL | [facility] | | | | | | MEDICAL | | | | | | CENTER - | | | | | | LABORATORY | | + +-------+ + + + | Absolute | 1.40 | 0.60 - 3.20 | [facility] | | | Lymphocytes | | K/uL | [facility] | | | | | | MEDICAL | | | | | | CENTER - | | | | | | LABORATORY | | + +-------+ + + + | Absolute | 0.50 | 0.00 - 1.00 | [facility] | | | Monocytes | | K/uL | [facility] | | | | | | MEDICAL | | | | | | CENTER - | | | | | | LABORATORY | | + +-------+ + + + | Absolute | 0.10 | 0.00 - 0.40 | [facility] | | | Eosinophils | | K/uL | [facility] | | | | | | MEDICAL | | | | | | CENTER - | | | | | | LABORATORY | | + +-------+ + + + | Absolute | 0.10 | 0.00 - 0.10 | [facility] | | | Basophils | | K/uL | [facility] | | | | [...] | + + + + + | [facility] | [address] | [place] | [phone] | | [facility] | | [address] | | | - LABORATORY | | | | + + + + + | [facility] | [address] | [place], [place] | | | [facility] | | [address], [facility] | | | - LABORATORY | | | | + + + + + documented in this encounter Visit Diagnoses + + | Diagnosis | + + | Abdominal pain, unspecified site | + + | Loss of weight | + + | Diarrhea | + + documented in this encounter"
--- OUTSIDE RECORDS SUMMARY | ~2020-03-28 | XMS | Encounter Summary ---
Demographics + + + | Address | [address] | | | [place] [address] | + + + | Home Phone | | + + + | Preferred Language | Unknown | + + + | Marital Status | | + + + | Anglican Affiliation | Unknown | + + + | Race | Unknown | + + + | Ethnic Group | Unknown | + + + Author + + + | Author | [facility] | | | and [place] | + + + | Organization | [facility] | | | and [place] [...] Team Providers + +------+ + | Care Telehealth Nurse Educator Name | Role | Phone | + +------+ + | Cristian Espinal | PCP | | | MD | | | + +------+ + Reason for Visit +--------+ + | Reason | Comments | +--------+ + | Other | c.diff | +--------+ + Encounter Details +--------+ + + + + | Date | Type | Department | Care Team | Description | +--------+ + + + + | 06/21/ | Telephone | [facility] | Jesus Fletcher MD | Other (c.diff) | | 2013 | | GASTROENTEROLOGY | [address] | | | | | [address] [facility] | [place], [place] | | | | | [address] [place] | [address] | | | | | [address] | [phone] | | | | | [phone] | | | +--------+ + + + [...] | Clostridium | Microbiolog | Routin | Intestinal | Expected: | | difficile A and B | y | e | infection due to | 06/21/2014, Expires: | | EIA | | | Clostridium | 06/21/2015 | | | | | difficile | | + + +--------+ + + documented as of this encounter Visit Diagnoses + + | Diagnosis | + + | Intestinal infection due to Clostridium difficile - Primary Intestinal infection due | | to clostridium difficile | + + documented in this encounter"
--- OUTSIDE RECORDS SUMMARY | ~2020-03-28 | XMS | Encounter Summary ---
Demographics + + + | Address | [address] | | | [place] [address] | + + + | Home Phone | | + + + | Preferred Language | Unknown | + + + | Marital Status | | + + + | Confucianist Affiliation | Unknown | + + + | Race | Unknown | + + + | Ethnic Group | Unknown | + + + Author + + + | Author | [facility] | | | and [place] | + + + | Organization | [facility] | | | and [place] [...] Team Providers + +------+ + | Care Supervisor Curing Room Name | Role | Phone | + [...] | +--------+ + + + + | 06/22/ | Telephone | [facility] | Jesus Fletcher MD | Other (c.diff) | | 2013 | | GASTROENTEROLOGY | [address] | | | | | [address] [facility] | [place], [place] | | | | | [address] [place] | [address] | | | | | [address] | [phone] | | | | | [phone] | | | +--------+ + + + [...]
--- OUTSIDE RECORDS SUMMARY | ~2020-03-28 | XMS | Encounter Summary ---
Demographics + + + | Address | [address] | | | [place] [address] | + + + | Home Phone | | + + + | Preferred Language | Unknown | + + + | Marital Status | | + + + | Hoahaoism Affiliation | Unknown | + + + | Race | Unknown | + + + | Ethnic Group | Unknown | + + + Author + + + | Author | [facility] | | | and [place] | + + + | Organization | [facility] | | | and [...] Team Providers + +------+ + | Care Production Tool Engineer Name | Role | Phone | + [...] +--------+--------+ + + + + Encounter Details +--------+ + + + + | Date | Type | Department | Care Team | Description | +--------+ + + + + | 07/07/ | Hospital | [facility] | Jesus Fletcher MD | | | 2013 | Encounter | [facility] | [address] | | | | | [address] | [place] | | | | | [place] | [address] | | | | | [address] | [phone] | | | | | [phone] | | | +--------+ + + + [...] the physician who did your procedure at [phone] if you have any questions or experience any of the following: Increasing abdominal pain, nausea, or vomiting. Chills and fever over 101F. New abdominal swelling or bloating. Signs of rectal bleeding (black or red stool. If you cannot get a hold of your physician, then call the [facility] [phone] . If necessary, report to the Emergency Department at [facility]. Quit smoking: If you smoke or have [...] tear in the colon Risks of anesthesia 3731-5960 [facility], [address] [place] [address], [place] [address]. All rights reserve d. This information is [...] + + +---------+ + + | B Xemitdw-H-Zmtrq | Take by mouth | | 0 [...] | [facility] | | GastroenterologyPatient Name: Desire CutlerProrodolfo Date: 07/07/2014 | [facility] | | 10:34 AMMRN: [id number] #: [id number] of : | | | 1955dmit Type: AmbulatoryAge: 59Room: [facility] 02Gender: FemaleNote | | | Status: FinalizedAttending MD: Jesus Fletcher, [facility]cedure: | | | ColonoscopyIndications: Abdominal pain in the right lower | | | quadrant, Clinically significant diarrhea | | | of unexplained originProviders: Jesus Fletcher MD, | | | Margret Hodgson RN, Beata | | | Lele, TechnicianReferring MD: Asif Espinal MD | | [...] the nurse | | | and the appraisal technician in the pre-procedure area in the [...] On: | | | 07/07/2014 10:34 AM [facility], [address] | | | [place] [address] | | | symptoms of potential delayed [...] On: 07/07/2014 10:34 AM | | | [facility], [address] [place], [place] | | | [address] | | + + -+ + + | Transcriptions | + + | Poncho Holm - 07/07/2014 12:00 AM PDT | + + + +---------+ + + | Performing | Address | City/State/Zipcode | Phone Number | | Organization | | | | + +---------+ + + | [facility] [place] | | | | + +---------+ + + documented in this encounter Visit Diagnoses Not on filedocumented in this encounter Administered Medications + +---------+ [...]
--- OUTSIDE RECORDS SUMMARY | ~2020-03-28 | XMS | Encounter Summary ---
Demographics + + + | Address | [address] | | | [place] [address] | + + + | Home Phone | | + + + | Preferred Language | Unknown | + + + | Marital Status | | + + + | Adventism Affiliation | Unknown | + + + | Race | Unknown | + + + | Ethnic Group | Unknown | + + + Author + + + | Author | [facility] | | | and [place] | + + + | Organization | [facility] [...] Team Providers + +------+ + | Care Music Composition Teacher Name | Role | Phone | + +------+ + | Cristian Espinal | PCP | | | MD | | | + +------+ + Reason for Visit + + + | Reason | Comments | + + + | Results, Pathology | colonoscopy | + + + Encounter Details +--------+ + + + + | Date | Type | Department | Care Team | Description | +--------+ + + + + | 07/12/ | Telephone | [facility] | Jesus Fletcher MD | Results, Pathology | | 2013 | | GASTROENTEROLOGY | [address] | (colonoscopy) | | | | [address] [facility] | [place], [place] | | | | | [address] [place], [place] | [address] | | | | | [address] | [phone] | | | | | [phone] | | | +--------+ + + + [...]
--- OUTSIDE RECORDS SUMMARY | ~2020-03-28 | XMS | Encounter Summary ---
Demographics + + + | Address | [address] | | | [place] [address] | + + + | Home Phone | | + + + | Preferred Language | Unknown | + + + | Marital Status | | + + + | Bahai Affiliation | Unknown | + + + | Race | Unknown | + + + | Ethnic Group | Unknown | + + + Author + + + | Author | [facility] | | | and [place] | + + + | Organization | [facility] | | | and [...] Team Providers + +------+ + | Care Petroleum Supply Specialist Name | Role | Phone | + +------+ + | Cristian Espinal | PCP | | | MD | | | + +------+ + Reason for Visit +---------+ + | Reason | Comments | +---------+ + | Results | ct scan abdomen and pelvis | +---------+ + Encounter Details +--------+ + + + + | Date | Type | Department | Care Team | Description | +--------+ + + + + | 07/15/ | Telephone | [facility] | Jesus Fletcher MD | Results (ct scan | | 2013 | | GASTROENTEROLOGY | [address] | abdomen and pelvis) | | | | [address] [facility] | [place], [place] | | | | | [address] [place], [place] | [address] | | | | | [address] | [phone] | | | | | [phone] | | | +--------+ + + + [...]
--- OUTSIDE RECORDS SUMMARY | ~2020-03-28 | XMS | Encounter Summary ---
Demographics + + + | Address | [address] | | | [place] [address] | + + + | Home Phone | | + + + | Preferred Language | Unknown | + + + | Marital Status | | + + + | Denominational Affiliation | Unknown | + + + | Race | Unknown | + + + | Ethnic Group | Unknown | + + + Author + + + | Author | [facility] | | | and [place] | + + + | Organization | [facility] | | | and [place] [...] Team Providers + +------+ + | Care Novelty Maker Name | Role | Phone | + +------+ + | Cristian Espinal | PCP | | | MD | | | + +------+ + Reason for Visit +--------+ + | Reason | Comments | +--------+ + | Other | diarrhea | +--------+ + Encounter Details +--------+ + + + + | Date | Type | Department | Care Team | Description | +--------+ + + + + | 06/30/ | Telephone | [facility] | Jesus Fletcher MD | Other (diarrhea) | | 2013 | | GASTROENTEROLOGY | [address] | | | | | [address] [facility] | [place], [place] | | | | | [address] [place] | [address] | | | | | [address] | [phone] | | | | | [phone] | | | +--------+ + + + [...]
--- NOTE | 2020-03-28 10:10 | NUR ---
PT ARRIVED TO FLOOR VIA WHEEL CHAIR. REPORTS DIZZINESS WHILE TRASFERING TO BED. 20G PLACED IN RIGHT AC. TOELRATED WELL. LR BOLUS STARTED. PT DENIES PAIN, REPORTS SOME LOWER ABDOMEN DISCOMFORT. LUNGS CLEAR. NO EDEMA. ORIENTED TO ROOM. DENEIS NEEDS.
[2020-03-28] MEDS ORDERED: METHIMAZOLE5 MG PO (10:30)
[2020-03-28] MEDS ORDERED: LISINOPRIL-HCT1 EAC2 PO (10:31)
[2020-03-28] MEDS ORDERED: METOPROLOL TAR100 MG PO (10:31)
[2020-03-28] MEDS ORDERED: SIMVASTATIN40 MG PO (10:31)
[2020-03-28] MEDS ORDERED: ESZOPICLONE2 MG PO (10:32)
[2020-03-28] MEDS ORDERED: ALIVE WOMEN'S1 EAC3 PO (10:33)
[2020-03-28] MEDS ORDERED: ZYRTEC-D TABLE1 EACH PO (11:40)
[2020-03-28] MEDS ORDERED: ALPRAZOLAM0.5 MG PO (11:40)
[2020-03-28] MEDS ORDERED: DICYCLOMINE HCL20 MG PO (11:42)
[2020-03-28] MEDS ORDERED: FLONASE ALLERG9.9 ML NAS (11:43)
[2020-03-28] MEDS ORDERED: PROCTOSOL-HC30 GM TOP (11:44)
[2020-03-28] MEDS ORDERED: NEXIUM20 MG PO (11:45)
[2020-03-28] MEDS ORDERED: LACTAID3000 UNI1 PO (11:47)
--- NOTE | 2020-03-28 11:48 | NUR ---
MED REC COMPLETE
--- NOTE | 2020-03-28 13:29 | NUR ---
PATIENT UP TO BATHROOM AND BACK TO BED, SBA. CALL LIGHT IN REACH. NO FURTHER NEEDS AT THIS TIME.
--- NOTE | 2020-03-28 14:16 | NUR ---
COVID TEST DONE WITH PAPR IN PLACE. PT TOLERATED WELL.
--- NOTE | 2020-03-28 17:09 | NUR ---
PATIENT RESTING IN BED. VITAL SIGNS AND I&O DONE. CALL LIGHT WITHIN REACH. NO OTHER NEEDS AT THIS TIME
--- NOTE | 2020-03-28 18:28 | NUR ---
CALL LIGHT ANSWERED. PATIENT RESTING IN BED. PATIENT GOES TO USE THE BATHROOM. ONE PERSON ASSISTING. PATIENT BACKS TO BED.CALL LIGHT WITHIN REACH. NO OTHER NEEDS AT THIS TIME
--- NOTE | 2020-03-28 18:41 | NUR ---
PT HAD GOOD DAY. URINE OUTPUT QS. SBA IN ROOM. SOME LOWER ABDOMINAL PAIN. TYLENOL WORKS WELL. NO NAUSE/ VOMITTING. DRINKING CLEARS WITH NO PROBLEM. D5LR AT 125 INFUSING. TOLERATED MAG AND POTASSIUM RIDERS. STILL NEED STOOL SAMPLE. PT AWARE.
--- NOTE | 2020-03-28 19:23 | NUR ---
DR HIGGINBOTHAM CALLED TO VERIFY MED ORDERS. TELPHONE ORDER FOR LUNESTA 2MG PO HS PRN OBTAINED. WRITTEN AND FAXED TO PHARMACY. PT PLACED ON CONTACT PRECAUTIONS FOR CDIFF RULEOUT
--- NOTE | 2020-03-28 19:43 | NUR ---
PATIENT CALLED. SBA TO THE BATHROOM AND BACK TO BED. WARM PACK AND WARM BLANKET PROVIDED. PATIENT ASKED ABOUT HER OTHER REGULAR MEDS SHE IS TAKING AT HOME IF HER NEEDS TO BRING OVER. PRIMARY RN NOTIFIED.
--- NOTE | 2020-03-28 20:07 | NUR ---
PATIENT IN BED WATCHING TV. IV INFUSING WITHOUT DIFFICULTY. PATIENT HAVING SOME 3/10 ABD CRAMPING. TYLENOL DO AT 2200 AND PATIENT SAID SHE COULD WAIT. IS BRINGING IN PATIENT'S SLEEP MEDS.
--- NOTE | 2020-03-28 21:33 | NUR ---
Assisted pt to the restroom, provided pt with heat pack.
--- NOTE | 2020-03-28 21:49 | NUR ---
SBA TO THE BATHROOM AND BACK TO BED. NO OTHER NEEDS AT THIS TIME.
--- NOTE | 2020-03-29 00:14 | NUR ---
PATIENT LAYING ON HER LEFT SIDE RESTING QUIETLY, RESPIRATIONS REGULAR AND EVEN, CALL LIGHTIN REACH.
--- NOTE | 2020-03-29 00:58 | NUR ---
PATIENT UP TO THE BATHROOM AND BACCK TO BED. CALL LIGHT IN REACH AND NO OTHER NEEDS AT THIS TIME.
--- NOTE | 2020-03-29 02:28 | NUR ---
PT CALLED, NEEDED BATHROOM. SBA, BACK TO BED INDEPENDENTLY. REQUESTED AND RECEIVED FRESH ICE WATER.
--- NOTE | 2020-03-29 02:41 | NUR ---
PATIENT JUST AWOKE AND VITALS AND ASSESSMENT DONE. PATIENT HAS BEEN SLEEPING OK. NO ISSUES AT THIS TIME, AND CALL LIGHT IN REACH.
--- NOTE | 2020-03-29 04:35 | NUR ---
PATIENT RESTING QUIETLY ON HER LEFT SIDE, HAS SLEPT WELL EXCEPT HAVING TO GO TO THE BATHROOM. EYES CLOSED WITH EVEB AND EQUAL RESPIRATIONS AT THIS TIME AND CALL LIGHT IN REACH.
--- NOTE | 2020-03-29 07:10 | NUR ---
received report from agapito coreas. pt resting in bed at this time
--- NOTE | 2020-03-29 07:10 | NUR ---
recevied report from eleanor coreas
--- NOTE | 2020-03-29 07:30 | NUR ---
PATIENT RESTING IN BED. PATIENT SAYS THAT MAYBE SHE WOULD LIKE TO TAKE A SHOWER THIS AFTERNOON. CALL LIGHT WITHIN REACH. NO OTHER NEEDS AT THIS TIME
--- NOTE | 2020-03-29 08:30 | NUR ---
IN PTS ROOM DOING ASSESSMENT. CALL LIGHT WITHIN REACH AND PT HAS NO NEEDS AT THIS TIME
--- NOTE | 2020-03-29 09:20 | NUR ---
PATIENT RESTING IN BED. VITAL SIGNS AND I&O DONE. CALL LIGHT WITHIN REACH. NO OTHER NEEDS AT THIS TIME
--- NOTE | 2020-03-29 10:35 | NUR ---
PT BACK TO BED AFTER USING BATHROOM. CALL LIGHT WITHIN REACH AND STATES NO NEEDS AT THIS TIME
--- NOTE | 2020-03-29 12:07 | NUR ---
in pts room to assist her back to bed. pts states that everytime she sits down to go pee she feels "shaky"
--- NOTE | 2020-03-29 13:00 | NUR ---
Spoke with Desire. She is nauseated as she is taking prep for colonoscopy tomorrow. States she has had issues with diarrhea for a long time and has had C diff in the past. Feels this is caused from her hyperthyroid or parathyroid. 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 Lives with her spouse near [place]. Plans on dc to home when released by .
--- NOTE | 2020-03-29 13:19 | NUR ---
PATIENT RESTING IN BED. VITAL SIGNS AND I&O DONE. ICE WATER GIVEN. CALL LIGHT WITHIN REACH. NO OTHER NEEDS AT THIS TIME
--- NOTE | 2020-03-29 13:37 | NUR ---
CALL LIGHT ANSWERED. PATIENT RESTING IN BED. PATIENT GOES TO USE THE BATHROOM. ONE PERSON ASSITING. PATIENT BACKS TO BED. CALL LIGHT WITHIN REACH. NO OTHER NEEDS AT THIS TIME
--- NOTE | 2020-03-29 14:10 | NUR ---
RN IN WITH PT, WILL CHECK AGAIN
--- NOTE | 2020-03-29 14:22 | NUR ---
PATIENT USING THE BATHROOM. PATIENT'S STOOL SAMPLE SENT TO THE LAB. PATIENT BACKS TO BED. CALL LIGHT WITHIN REACH. NO OTHER NEEDS AT THIS TIME
--- NOTE | 2020-03-29 14:30 | NUR ---
IN PTS ROOM PER CALL LIGHT. PT NOW HAVING RUNNY BOUTS OF GORDY DUE TO GORDY SOFTENER. PT WILL PLACE CALL LIGHT ON WHEN SHE GOES TO BATHROOM, TRANSFER HERSELF AND THEN WILL PLACE THE CALL LIGHT BACK ON WHEN SHE GETS BACK TO BED. PT STATES THAT SHE WILL BE CAREFUL NOT TO FALL AND WILL BE SLOW WHEN CHANGING POSTIONS
--- NOTE | 2020-03-29 16:35 | NUR ---
PT CALLED THIS RN INTO ROOM. PT STATES THAT SHE STARTED VOMITING AND THEN FELT HER HEART START RACING. PT STATES THAT THIS IS WHAT HAPPENS WHEN SHE STOPS TAKING HER LOPRESSOR
--- NOTE | 2020-03-29 17:11 | NUR ---
CHECKED ON PT. CALL LIGHT WITHIN REACH. PT REQUESTS WARM BLANKET AT THIS TIME. NO OTHER REQUESTS AT THIS TIME
--- NOTE | 2020-03-29 18:22 | NUR ---
ASSISTED PATIENT TO BATHROOM. VITALS AND I&OS ARE DONE. ROOM TIDIED.
--- NOTE | 2020-03-29 18:28 | NUR ---
PT STARTING HAVING LIQUID BOWEL MOVEMENTS THIS EVENING AFTER RECEIVING MAG CITRATE. PT HAS FLUIDS RUNNING AND DENIES PAIN. PT DID HAVE EMESIS X1 TODAY THAT WAS THEN CONTROLLED WITH ZOFRAN. PT CALLS APPROPRIATELY.
--- NOTE | 2020-03-29 19:23 | NUR ---
SHIFT REPORT RECIEVED FROM ELIEZER BLACKWELL. PT RESTING IN BED. NO NEEDS AT THIS TIME. CALL LIGHT IN REACH.
--- NOTE | 2020-03-29 21:39 | NUR ---
ASSESSMENT COMPLETED. ABD MILDLY DISTENDED, NON TENDER. LUNGS CLEAR. IV WNL, CDI, FLUSHED WELL. ICE WATER PROVIDED. WARM PACK FOR LOWER BACL PROVIDED BY [facility] CENTRIFUGAL SEPARATOR. IV FLUIDS INFUSING PER ORDER. NO OTHER NEEDS. CALL LIGHT IN REACH.
--- NOTE | 2020-03-29 23:30 | NUR ---
PT RESTING IN BED, EYES CLOSED. RR EVEN, UNLABORED. CALL LIGHT IN REACH.
--- NOTE | 2020-03-30 01:36 | NUR ---
PT RESTING IN BED, EYES CLOSED. RR EVEN, UNLABORED. IV FLUIDS INFUSING PER ORDER. CALL LIGHT IN REACH.
--- NOTE | 2020-03-30 02:42 | NUR ---
IV PUMP ALARMING, NEW BAG IV FLUIDS PROVIDED. ASSESSMENT COMPLETED. MILD GENERALIZED EDEMA IN BOTH HANDS. LUNGS CLEAR. PT DENIES PAIN. NO OTHER NEEDS AT THIS TIME. CALL LIGHT IN REACH.
--- NOTE | 2020-03-30 03:34 | NUR ---
PT IV PUMP ALARMING, SWELLING AT SITE NOTED. IV DCd WNL. NEW 20G STARTED IN LEFT FA. PT TOLERATED WELL. IV FLUIDS INFUSING PER ORDER. NO OTHER NEEDS AT THIS TIME. CALL LIGHT IN REACH.
--- NOTE | 2020-03-30 04:57 | NUR ---
PT SLEPT OFF AND ON THIS SHIFT. NEW IV PLACED IN LEFT FA DUE TO RIGHT AC IV INFILTRATION, PT TOLERATED WELL. MILD EDEMA NOTED IN BILATERAL HANDS. PAIN MANAGED WITH SCHEDULED MEDS. PT NPO AT MIDNIGHT, TOLERATED WELL. PRN SLEEP MED PROVIDED AT PT REQUEST, PT OWN MED. PT HAD 1 EPISODE OF LOOSE STOOL. UO SUFFICINET. VSS.
--- NOTE | 2020-03-30 05:57 | NUR ---
SCHEDULED MED PROVIDED. VS AND I&O COMPLETED. HOT PACKS PROVIDED. NO OTHER NEEDS AT THIS TIME. CALL LIGHT IN REACH.
--- NOTE | 2020-03-30 07:15 | NUR ---
REPORT RECEIVED FROM ROSALVA MURRELL. PT WATCHING TV. PT DENIES PAIN AND NAUSEA AND IS ANTICIPATING COLONOSCOPY THIS MORNING. PT DENIES ADDITIONAL REQEUSTS OR COMPLAINTS AT THIS TIME. CALL LIGHT WITHIN REACH.
--- NOTE | 2020-03-30 07:49 | NUR ---
MORNING ASSESSMENT AND MEDICATION DUE. THIS RN TO ROOM, PT WATCHING TV. PT REPORTS 3/10 CRAMPING PAIN IN ABDOMEN AND 1/10 NAUSEA THAT IS "MUCH BETTER." PT DENIES NEED FOR ADDITIONAL PAIN MEDICATION. HEAT PACK PROVIDED FOR CRAMING. PT REPORTS ONGOING TROUBLE WITH ANXIETY, "FEELING HOT AND SWEATY." LUNG SOUNDS CLEAR. BOWEL PREP COMPLETE. SURGERY DEPARTMENT CALLED AND STATES TO GIVE MORNING MEDICATIONS WITH A SMALL SIP OF WATER. MEDICATION GIVEN. PRE PROCEEDURE CHECK LIST GIVEN. PT DEMONSTRATES USE OF I.S. REACHING 1500ML. NO ADDITIONAL REQUESTS OR COMPLAINTS. CALL LIGHT WITHIN REACH.
--- NOTE | 2020-03-30 07:52 | HP ---
[facility] [address], [place] [address] Signed ADMISSION DATE: 03/28/2020 REASON FOR ADMISSION: Protracted unrelenting diarrhea with dehydration. HISTORY OF PRESENT ILLNESS: This 64-year-old white woman is known to me from the past. I saw her over a month ago, anticipating colonoscopy for intractable diarrhea. She has undergone stool studies by Dr. Espinal in his office, which had shown no enteric pathogens. She does have a history, however, in the past of C difficile colitis with diarrhea, which was treated and ostensibly cured of the problem. She concurrently has known hyperthyroidism, for which she is under the care of Dr. Carrasco, track grinder in [place], [place]. Her management has included methimazole for thyroid suppression. It has been over a year since this therapy has been initiated and the patient knows of no foreseeable plan for radioactive iodine ablation of the thyroid or offer of surgical remedy. It is thought that her diarrhea has been multifactorial, but might likely be related to hyperthyroidism underlying her overall situation. On that basis, she underwent a thyroid function test evaluation by me on March 20, which shows normal TSH and T4. She called our office today rather exasperated due to self description of dehydration related to her protracted diarrhea. This has been NONresponsive to an [id number] agent, possibly Lomotil. She has had no blood per rectum. No associated nausea, vomiting, or hematemesis. It was anticipated that she undergo colonoscopy, but due to the COVID pandemic, scheduling for the procedure has been somewhat delayed. Notably, she has undergone COVID testing since admission to the hospital. The result is still pending. Her evaluation at presentation now shows a sodium of 133 with a potassium of 3.2, creatinine of 0.68, glucose of 92, and a calcium of 10.5. She is not noted to have been hypercalcemic in the past. This may be related to dehydration. Her albumin is 4.6 and globulin 4.3, which is somewhat elevated. Total protein is 8.9. Her CBC shows a white count of 7.5 and hematocrit of 39.6, platelets of 253,000. REVIEW OF SYSTEMS: She denies any shortness of breath or chest pain. She is having no dysuria. No hematuria. No hematemesis. No dysphagia. Electronically Signed By: CHELSY HIGGINBOTHAM MD 03/30/20 0752 PATIENT NAME: SELENA WISE HISTORY AND PHYSICAL DATE OF : 55 REPORT #: [id number] PHYSICIAN: CHELSY HIGGINBOTHAM MD PCP: KRISTAL ESPINAL MD REPORT IS CONFIDENTIAL AND NOT TO BE RELEASED WITHOUT AUTHORIZATION [facility] [address], [place] [address] Signed PHYSICAL EXAMINATION: GENERAL: This is a pleasant white woman, who does not look to be severely distressed at this time after 2 L of crystalloid solution. VITAL SIGNS: Presentation vital signs showed a temperature 97.5 with pulse of 60, blood pressure 156/62, O2 saturation 100% on room air. NECK: Shows no thyromegaly or cervical adenopathy. Trachea is midline. She has no hoarseness. Mucous membranes are still dry. CHEST: Clear. HEART: Regular without murmur. ABDOMEN: Scaphoid and nondistended. There is no focal tenderness. No ascites. EXTREMITIES: Show no clubbing, cyanosis, or edema. LABORATORY STUDIES: White count of 7.5, hematocrit 39.6, platelets 253,000, lymphocytes 16.4 (low). Chem profile as previously described. Serology; coronavirus PCR pending. ASSESSMENT: Her diarrhea has previous been attributed to her hyperthyroidism. She has been on methimazole for a year or possibly more and is uncertain to me. The patient is unaware of a definitive plan for management of her presumed Graves disease, specifically iodine ablation therapy or surgical thyroidectomy (to my knowledge, not offered previously). Although, she has been diagnosed with hyperthyroidism previously, she is euthyroid chemically now with a normal TSH and T4. Whether or not the methimazole itself is contributing to her diarrhea problem is uncertain to me and I will have to review that possibility. A colonoscopy is still indicated to assess that there is no other more sinister cause of her diarrhea including neoplasm, colitis, or other abnormality. For now, I have admitted her for fluid resuscitation, electrolyte correction, and likely for colonoscopy that should be undertaken as previously planned. The risks of bleeding, infection, and perforation related to colonoscopy was reviewed with her and well understood already. Definitive management of her hyperthyroidism has several options. Radioactive iodine ablation therapy is a consideration, but surgical resection is also a consideration. Notably, she has been made chemically euthyroid with a relatively terminologist use of methimazole, but it is not a definitive substitute for definitive therapy of hyperthyroidism generally. For now, we will keep with clear liquids, IV fluids, loperamide for diarrhea control. Electrolyte correction to include potassium and magnesium, and consideration for Electronically Signed By: CHELSY HIGGINBOTHAM MD 03/30/20 0752 PATIENT NAME: SELENA WISE HISTORY AND PHYSICAL DATE OF : 55 REPORT #: [id number] PHYSICIAN: CHELSY HIGGINBOTHAM MD PCP: KRISTAL ESPINAL MD REPORT IS CONFIDENTIAL AND NOT TO BE RELEASED WITHOUT AUTHORIZATION [facility] [address] [place] [address] Signed colonoscopy in the very near future. Additionally, we will send stool for white cells as well as Clostridium difficile assessment given her prior history of same. MD WENDI Braga/GUERITA /[id number] cc: Kristal Espinal MD Copies: KRISTAL ESPINAL MD ~ Electronically Signed By: CHELSY HIGGINBOTHAM MD 03/30/20 0752 PATIENT NAME: SELENA WISE HISTORY AND PHYSICAL DATE OF : 55 REPORT #: [id number] PHYSICIAN: CHELSY HIGGINBOTHAM MD PCP: KRISTAL ESPINAL MD REPORT IS CONFIDENTIAL AND NOT TO BE RELEASED WITHOUT AUTHORIZATION
--- NOTE | 2020-03-30 09:16 | NUR ---
THIS RN TO ROOM TO CHECK ON PT. SMALL LOOSE BOWEL MOVEMENT NOTED, YELLOW-CLEAR. PT REPORTS 2/10 CRAMPING PAIN THAT IS CONTROLED WITH HEAT PACK. NO ADDITIONAL REQUESTS OR COMPLAINTS AT THIS TIME. CALL LIGHT WITHIN REACH.
--- NOTE | 2020-03-30 10:30 | NUR ---
Spoke with Desire. She is waiting to go for a colonoscopy.
--- NOTE | 2020-03-30 11:38 | NUR ---
NOON ASSESSMENT DUE. PT FOUND UP IN ROOM. PT STATES SHE IS FEELING ANXIOUS, AND HOT. EDUCATION DONE WITH PT REGARDING HYPERTHRYRIODISM AND ANXIETY. PT REPORTS SHE CALMS WITH AMBLATION. PT HAD BOWEL ACCIDENT. FELIPA CARE DONE BY PATIENT. LINENS CHANGED. PT UP TO CHAIR. ASSESSMENT DONE. PT REPORTS 2/10 CRAMPING PAIN THAT IS WELL CONTROLED. PT REPORTS SHE HAS BEEN LOOSING WEIGHT LATELY. STANDING WEIGHT TAKEN = 61.6KG. PT REPORTS THIS IS NEAR HER NORMAL THAT SHE NORMALLY WEIGHTS 140LBS. PT UPDATED ON PLAN OF CARE. NO ADDITIONAL REQUESTS OR COMPLAINTS. CALL LIGHT WITHIN REACH.
--- NOTE | 2020-03-30 12:05 | NUR ---
STAYED JUST A MOMENT WITH PT-SHE SEEMS OCCUPIED WITH JAHAIRA WANG PRES CONF AND IS VERY FIGIDY. SEEMS UNCOMFORTABLE. GAVE BLESSING AND LEFT G POST. WILL SEE PT AGAIN.
--- NOTE | 2020-03-30 13:00 | NUR ---
OR NURSING STAFF ARRIVED TO TAKE PT FOR PROCEEDURE. NO QUESTIONS FROM OR STAFF. PT TRANSFERS SELF TO STRETCHER.PT VERBALIZES UNDERSTANDING OF PROCCEDURE AND DENIES QUSTIONS AT THIS TIME.
--- NOTE | 2020-03-30 13:53 | NUR ---
03/30/20 1353 Sheets,Tita 1341 PT ARRIVED TO PACU PT AWAKE AND TALKING TO RN. PT REPORTS SMALL AMOUNT OF GAS PAIN IN ABD, RN ENCOURAGED PT TO PASS GAS/AIR. VSS. PT RESTING WITH EYES CLOSED.
--- NOTE | 2020-03-30 14:18 | NUR ---
PATIENT ARRIVED TO ROOM 113 AT 1400. PATIENT MOVED SELF TO BED, ENDORSES SOME ABDOMINAL CRAMPING, NO NAUSEA. PATIENT WILL BE REMOVED FROM CONTACT PRECAUTIONS AT THIS TIME.
--- NOTE | 2020-03-30 14:53 | NUR ---
PT RETURNED FROM PACU. THIS RN TO ROOM. VITALS TAKEN. PT AWAKE AND ALERT. PT REPORTS PASSING GAS, ENCOURAGED TO DO SO. BLOOD PRESSURE RETAKEN MANUALLY, 176/76. WILL CONSULT DIATITIAN TO BEDSIDE TO TALK WITH PT ABOUT GLUTEAN FREE DIETS AND FOODS. PT ENGAGED IN DISCUSSION. PT DENIES PAIN AND NAUSEA. CALL LIGHT WITHIN REACH. BED RAILS UP.
--- NOTE | 2020-03-30 15:17 | NUR ---
PATIENT WAS ADMITTED AT HIGH RISK FOR MALNUTRITION DUE TO RECENT POOR APPETITE AND WEIGHT LOSS. SHE HAS HAD DIARRHEA FOR "A LONG TIME" BUT HASN'T BEEN EATING WELL RECENTLY. HER WEIGHT FLUCTUATES 5-6 LBS REGULARLY BECAUSE OF HER THYROID, BUT SHE THINKS SHE HAS LOST A COUPLE MORE LBS THAN THAT. SHE IS FEELING BETTER TODAY, JUST GASSY. SHE HAS HAD STOMACH ISSUES FOR YEARS. SHE WAS DRINKING LACTAID MILK AT HOME. SHE CAN TOLERATE CHEESE BUT NO OTHER DAIRY. SHE TOOK A LACTASE PILL WITH EVERY MEAL FOR A FEW DAYS AND THAT SEEMED TO HELP, THOUGH SHE WASN'T ACTUALLY EATING DAIRY. CURRENT BMI IS 23.6 WHICH IS NORMAL. SHE STATES SHE DOES EAT A LOT OF FRIED FOOD AT HOME. EATS MOSTLY 93/7 HAMBURGER AND CHICKEN, SOME FISH BUT IS CONCERNED ABOUT IODINE CONTENT IN SOME. WAS ALSO EATING CRACKERS QUITE A BIT. BREAKFAST IS USUALLY HONEY NUT CHEX WITH LACTAID MILK. LUNCH MIGHT BE 1/2 SANDWICH WITH TURKEY AND POTATO CHIPS. SHE DOES LIKE FRUIT. BIOPSIES TAKEN TODAY FROM COLONOSCOPY AND WILL BE SENT OFF TO TEST FOR CELIAC DISEASE. WE TALKED A LITTLE BIT ABOUT A GLUTEN-FREE DIET. ROSALVA SANTOS PROVIDED SOME GLUTEN-FREE INFORMATION FOR READING MATERIAL. PATIENT DOESN'T BELIEVE THERE IS A HISTORY OF AUTO-IMMUNE DISEASE IN HER FAMILY. SHE IS ON A REGULAR DIET HERE. I PROVIDED HER A PRINTED GLUTEN-FREE/LACTOSE-FREE MENU FOR HERE. WILL CONTINUE TO MONITOR AND ASSIST WITH ANY NUTRITIONAL NEEDS NEEDED.
--- NOTE | 2020-03-30 16:22 | NUR ---
AFTERNOON ASSESSMENT AND MEDICAITON DUE. PT REPORTS 02/24 PAIN, AMBULATION ENCOURAGED. PT UP WITH SBA TO AMBULATE IN HOYOS X2 LAPS. PT REPORTS ACTIVITY HELPS THE "GAS PAINS" NOW 01/24. PT SITTING UP IN BED. LUNG SOUNDS CLEAR. PT DEMONSTRATES UNDERSTANDING OF GLUTEAN FREE DIET BY ORDERING A GLUTEAN FREE DINNER. PT BLOOD PRESSURE REMAINS ELEVATED AT 177/64. PT REPORTS SHE FEELS CALM AT THIS TIME. MEDICATION GIVEN. PT TOELRATING PO FLUIDS AND SNACKS. PT DENIES ADDITIONAL REQUESTS OR COMPLAINTS AT THIS TIME. CALL LIGHT WITHIN REACH.
--- NOTE | 2020-03-30 16:26 | NUR ---
ORDERED PATIENT'S DINNER AND BREAKFAST. I WILL ASK HER IF SHE WOULD LIKE TO TAKE A SHOWER.
--- NOTE | 2020-03-30 17:33 | NUR ---
PT HERE FOR PROTRACTED UNRELENTING DIARRHEA. COLONOSCOPY WITH BIOPSY THIS SHIFT. SBA UP TO RESTROOM AND WITH AMBULATION AFTER COLONOSCOPY. PT TOLERATING REGULAR DIET. GLUTEN FREE DIET EDUCATION DONE WITH PT, DIATITIAN TO BEDSIDE FOR CONSULTATION. SCHEDULED TYLENOL GIVEN. GAS PAINS NOTED. PT PASSING GAS. ELEVATED BLOOD PRESSURES NOTED THIS AFTERNOON. WILL CONTINUE TO MONITOR. PT VOIDING QUANTITY SUFFICIENT. PT USES CALL LIGHT APPROPRIATLY.
--- NOTE | 2020-03-30 18:23 | NUR ---
THIS RN TO ROOM TO CHECK ON PT. PT RESTING IN BED WATCHING TV. PT REPORTS DINNER WENT WELL WITH NO NAUSEA. PT WAS ABLE TO EAT 75% OF DINNER. WATER REFILLED. PLAN OF CARE DISCUSSED WITH PT. PT DENIES ADDITIONAL REQUESTS OR COMPLAINTS. CALL LIGHT WITHIN REACH.
--- NOTE | 2020-03-30 19:53 | NUR ---
PATIENT RESTING QUIETLY IN BED, NO NEEDS AT THIS TIME.
--- NOTE | 2020-03-30 22:30 | NUR ---
PATIENT RESTING IN BED AT THIS TIME WITH NO NEEDS.
--- NOTE | 2020-03-31 00:38 | NUR ---
PATIENT RESTING QUIETLY ON HER RIGHT SIDE, EYES CLOSED, CALL LIGHT IN REACH, RESPIRATIONS REGULAR AND EVEN.
--- NOTE | 2020-03-31 04:57 | NUR ---
PATIENT HAS REST WELL MOST OF THE NIGHT EXCEPT FOR A COUPLE TIMES SHE NEEDED TO USE THE RESTROOM.
--- NOTE | 2020-03-31 07:02 | NUR ---
REPORT RECEIVED FROM ROSALVA ANDINO. PT TALKING ON PHONE. PT REPORTS ANXIETY, DENIES PAIN AND NAUSEA. NO REQUESTS OR COMPLAINTS. CALL LIGHT WITHIN REACH.
--- NOTE | 2020-03-31 08:08 | NUR ---
MORNING ASSESSMENT AND MEDICATION DUE. PT REPORTS ANXIETY AND SWEATING. BLOOD PRESSURES NOTED TO BE ELVATED RAMSEY 198/82. MEDICATION GIVEN. WILL REASSESS. LUNG SOUNDS CLEAR. PT DENIES PAIN AND NAUSEA. PT STATES SHE HAS NOT HAD ANY DIRRHEA SINCE COLONSCOPY YESTERDAY. PT STATES SHE WOULD LIKE TO GO HOME SOON. PT EATING BREAKFAST. MEDICAITONS GIVEN. CALL LIGHT WITHIN REACH. COLORING BOOK AND CRAYONS PROVIDED PER PT REQUEST TO ASSIST WITH ANXIETY. CALL LIGHT WITHIN REACH. BED RAILSUP.
[2020-03-31] MEDS ORDERED: CHOLESTYRAMINE P4 GM PO (09:53)
--- NOTE | 2020-03-31 10:09 | NUR ---
PT READY FOR DISCHRAGE. VITALS TAKEN. IV DC'D BY GALLO ROPER II. PT UP TO DRESS SELF. PT STEADY ON FEET WITH SBA. DISCHRAGE INSTRUCTIONS REVIEWED WITH PT. PT VERBALIZES UNDERSTANDING OF INSTRUCTIONS, MEDICATIONS AND FOLLOW UP APPONITMENT. PHARMACIST CALLED TO SPEAK WITH PT ABOUT MEDICATIONS. PT STATES SHE DOES NOT WANT TO WAIT TO SPEAK TO PHARMACIST. PT WHEELED FROM MED/SURG TO MEET . NO ADDITIONAL REQUESTS OR CONCERNS.
--- NOTE | 2020-03-31 11:16 | OR ---
[facility] [address], [place] [address] Signed DATE OF OPERATION: 03/30/2020 SURGEON: Chelsy Higginbotham MD PREOPERATIVE DIAGNOSIS: Intractable diarrhea with dehydration and metabolic abnormalities. POSTOPERATIVE DIAGNOSIS: Normal-appearing colon and ileum except for mild proctitis. PROCEDURE: Total colonoscopy to cecum with intubation of ileum and biopsies. ANESTHESIA: Intravenous sedation, fentanyl 150 mcg and Versed 9 mg. INDICATIONS: This 64-year-old white woman is a patient Dr. Espinal. She is known to me from the past as well. She has had diarrhea for many months. She is also known to be treated for hyperthyroidism with methimazole for over 18 months under the direction of Dr. Carrasco in [place], [place]. Her recent TSH and T4 were found to be normal. She has had C difficile colitis in the past and treated for it. She was admitted by me to the hospital on March 30 with dehydration related to intractable diarrhea. A plan for colonoscopy had been outlined prior to the COVID era, but given the particulars of her situation, a colonoscopy could not be undertaken at that time. She has been fluid resuscitated and evaluation has included a COVID-19 test, which is negative. C difficile assessment, which is negative as well. She is admitted to undergo colonoscopy to better characterize the problem at this time. She understands the risks of bleeding, infection, and perforation and wished to proceed. Diarrhea is well known problem related to hyperthyroidism, but her recent TSH and T4 appeared normal. FINDINGS: Prep was excellent. Complete colonoscopy was undertaken to the cecum and intubation of the ileum without problem. None of the areas look particularly pathologic, there is certainly no sign of cancer. Biopsies were taken from the ileum, cecum, left colon, sigmoid and rectum. The rectum did have mild proctitis probably bowel prep related. There were no diverticula. Electronically Signed By: CHELSY HIGGINBOTHAM MD 03/31/20 1116 PATIENT NAME: SELENA WISE OPERATIVE REPORT DATE OF : 55 REPORT #: [id number] PHYSICIAN: CHELSY HIGGINBOTHAM MD PCP: KRISTAL ESPINAL MD REPORT IS CONFIDENTIAL AND NOT TO BE RELEASED WITHOUT AUTHORIZATION [facility] [address], [place] [address] Signed PROCEDURE NOTE: The patient was brought to the endoscopy suite and placed in lateral decubitus position, given intravenous sedation to the point of slurred speech and nystagmus. Digital rectal examination was normal. She did have some perianal excoriation related to diarrhea. An Olympus video colonoscope was passed into the rectum and manipulated throughout the colon, ultimately intubating the cecum. With various manipulations, the scope was passed into the ileum. The ileum appeared normal. Scope was passed about 6 cm into the ileum. Biopsies were obtained. The scope was withdrawn. A biopsy was then taken of the cecum. Careful withdrawal of scope showed no sign of abnormality. Biopsies were nevertheless taken in the left colon and sigmoid and rectum. Retroflexed view was normal. Scope was removed. The patient was taken to the recovery room in good condition. CONCLUDING DIAGNOSIS: No clear lesion to account for symptoms of diarrhea. Unless microscopic colitis is noted, it is unlikely the colon is a primary abnormality. Consideration that her hyperthyroidism is part of the problem, is considered as well. We will additionally assess for celiac disease. Chelsy Higginbotham MD JM/MODL /[id number] cc: Kristal Espinal MD Copies: KRISTAL ESPINAL MD ~ Electronically Signed By: CHELSY HIGGINBOTHAM MD 03/31/20 1116 PATIENT NAME: SELENA WISE OPERATIVE REPORT DATE OF : 55 REPORT #: [id number] PHYSICIAN: CHELSY HIGGINBOTHAM MD PCP: KRISTAL ESPINAL MD REPORT IS CONFIDENTIAL AND NOT TO BE RELEASED WITHOUT AUTHORIZATION
--- NOTE | 2020-04-03 17:40 | PATH ---
[facility] [address] [facility] [place], [place] [address] Signed SPECIMEN(S): A ILEUM SPECIMEN(S): B CECUM SPECIMEN(S): C DESCENDING SPECIMEN(S): D SIGMOID SPECIMEN(S): E RECTUM SPECIMEN SOURCE: A. ILEUM B. CECUM C. DESCENDING D. SIGMOID E. RECTUM CLINICAL HISTORY: Preop: Diarrhea. Postop: Mild proctitis. Dehydration, intractable diarrhea. MICROSCOPIC DESCRIPTION: Histologic sections of all submitted blocks are examined by light microscopy. These findings, together with the gross examination, support the pathologic diagnosis. FINAL PATHOLOGIC DIAGNOSIS: A. Ileum, biopsy: - No significant histopathology. B. Colon, cecum, biopsy: - No significant histopathology. C. Colon, descending, biopsy: - No significant histopathology. D. Colon, sigmoid, biopsy: - No significant histopathology. E. Rectum, biopsy: - Mild focal active proctitis. COMMENT: Regarding specimen A, the sections through the terminal ileum show portions of ileal mucosa that is architecturally normal. There is no evidence of acute or chronic inflammation. There are no abnormal infiltrates, microorganisms, tumors, or polyps. No granulomas are seen. Regarding specimens B, C and D, the sections from the specimen contain architecturally normal colonic mucosa without crypt distortion. There is no acute or chronic inflammation. There is no evidence of microscopic colitis. There are no abnormal organisms or infiltrates. There PATIENT NAME: SELENA WISE PATHOLOGY DATE OF : 55 REPORT #: [id number] PHYSICIAN: DOLORES ZARAGOZA PCP: KRISTAL URENA MD REPORT IS CONFIDENTIAL AND NOT TO BE RELEASED WITHOUT AUTHORIZATION [facility] [address] [place], [place] [address] Signed are no polyps or neoplasms. Regarding specimen E, the sections through the rectal biopsy show portions of very mildly inflamed rectal mucosa. There is evidence of mucosal regeneration as seen by the presence of branched crypts. Rare neutrophils are present particularly superficially. The changes are very mild in nature and may have been induced by the bowel prep or may be related to the passage of stool over the surface or mucosal prolapse. TWK:caw:C2NR GROSS DESCRIPTION: Five specimens are received in five containers, labeled "AN." A. The specimen, labeled "AN, ileum biopsy," is received in formalin and consists of one stratton soft tissue fragment that measures 0.2 cm in greatest dimension. The specimen is entirely submitted in cassette (A1). B. The specimen, labeled "AN, cecum biopsy," is received in formalin and consists of two stratton soft tissue fragments that measure 0.2 cm in greatest dimension. The specimen is entirely submitted in cassette (B1). C. The specimen, labeled "AN, descending colon biopsy," is received in formalin and consists of two stratton soft tissue fragments that measure 0.2 cm in greatest dimension. The specimen is entirely submitted in cassette (C1). D. The specimen, labeled "AN sigmoid colon biopsy," is received in formalin and consists of two stratton soft tissue fragments that measure 0.2 cm in greatest dimension. The specimen is entirely submitted in cassette (D1). E. The specimen, labeled "AN, rectum biopsy," is received in formalin and consists of two stratton soft tissue fragments that measure 0.2 cm in greatest dimension. The specimen is entirely submitted in cassette (E1). JS (under the direct supervision of a pathologist) The Gross Description was prepared using a voice recognition system. The report was reviewed for accuracy; however, sound-alike word errors, addition and/or deletions may occur. If there is any question about this report, please contact Client Services. PERFORMING LABORATORY: The technical component was performed by [employer] Marciano Tom, PATIENT NAME: SELENA WISE PATHOLOGY DATE OF : 55 REPORT #: [id number] PHYSICIAN: DOLORES ZAARGOZA PCP: KRISTAL URENA MD REPORT IS CONFIDENTIAL AND NOT TO BE RELEASED WITHOUT AUTHORIZATION [facility] [address] [place], [place] [address] [place] [address] (Indian Nanny: Wendy Garza MD; CLIA# [id number]). Professional interpretation was performed by [employer] Vaishali [address] [place], [place] [address]griselda [facility] [address] (Indian Nanny: Wendy Garza MD; CLIA# [id number]). Diagnostician: Julius Ortega MD Pathologist Electronically Signed 04/03/2020 Copies: ~ PATIENT NAME: SELENA WISE PATHOLOGY DATE OF : 55 REPORT #: [id number] PHYSICIAN: DOLORES ZARAGOZA PCP: KRISTAL URENA MD REPORT IS CONFIDENTIAL AND NOT TO BE RELEASED WITHOUT AUTHORIZATION
== END 2020-03-31 10:20 | disposition home or self-care (01) | DRG 392 ==
LOC: MS 09:20
PROVIDERS: ADMIT Surgery
PROC: 0DBN8ZX Excision of Sigmoid Colon, Via Natural or Artificial Opening Endoscopic, Diagnostic (ICD-10-PCS; 2020-03-30)
PROC: 0DBP8ZX Excision of Rectum, Via Natural or Artificial Opening Endoscopic, Diagnostic (ICD-10-PCS; 2020-03-30)
PROC: 0DBG8ZX Excision of Left Large Intestine, Via Natural or Artificial Opening Endoscopic, Diagnostic (ICD-10-PCS; 2020-03-30)
PROC: 0DBB8ZX Excision of Ileum, Via Natural or Artificial Opening Endoscopic, Diagnostic (ICD-10-PCS; 2020-03-30)
PROC: 0DBH8ZX Excision of Cecum, Via Natural or Artificial Opening Endoscopic, Diagnostic (ICD-10-PCS; principal; 2020-03-30 11:30)
DX: R19.7 Diarrhea, unspecified (principal); E86.0 Dehydration; E87.6 Hypokalemia; K62.89 Other specified diseases of anus and rectum; E05.90 Thyrotoxicosis, unspecified without thyrotoxic crisis or storm; F41.9 Anxiety disorder, unspecified; I10 Essential (primary) hypertension; E78.5 Hyperlipidemia, unspecified; Z90.49 Acquired absence of other specified parts of digestive tract; Z20.828 Contact with and (suspected) exposure to other viral communicable diseases; Z88.2 Allergy status to sulfonamides; Z88.5 Allergy status to narcotic agent
CPT/HCPCS: 36415; 80048; 80053; 82310; 82784; 83516; 83735; 85025; 87493; 99153; G0500; J2250; J2405; J3010; J3475; J3480; J7060; J7121; U0002

== ENCOUNTER 2020-04-21 10:47 | Inpatient (IN) | payer MEDICARE, OTHER ==
[~2020-04-21] VITALS: Ht 154.9 cm; Wt 59.0 kg
[~2020-04-21 10:47] MED LIST: ALIVE WOMEN'S1 EAC3 PO; ALPRAZOLAM0.5 MG PO; CHOLESTYRAMINE P4 GM PO; DICYCLOMINE HCL20 MG PO; ESZOPICLONE2 MG PO; FLONASE ALLERG9.9 ML NAS; LACTAID3000 UNI1 PO; LISINOPRIL-HCT1 EAC2 PO; METHIMAZOLE5 MG PO; METOPROLOL TAR100 MG PO; NEXIUM20 MG PO; PROCTOSOL-HC30 GM TOP; SIMVASTATIN40 MG PO; ZYRTEC-D TABLE1 EACH PO
[2020-04-24] MEDS ORDERED: ZYRTEC10 MG PO (08:29)
--- NOTE | 2020-04-27 09:57 | NUR ---
PT ALERT, ORIENTED AND SUPPORTED BY HER LORENA. COULD IMMEDIATELY TELL PT WAS ANXIOUS, WORKED TO COMFORT AND DEBRIEF. PT DECLINED PRAYER, WILL VISIT PT FOLLOWING SURGERY
--- NOTE | 2020-04-27 10:57 | NUR ---
04/27/20 1057 Sri Mccoy 1048-PATIENT ARRIVED TO PACU ON 6L MASK NONAROUSABLE RR EVEN. PATIENTS HEAD REPOSITIONED TO MAINTAIN OPEN AIRWAY. SR. DRESSING TO THROAT CDI. SLIGHT REDNESS TO NECK BELOW DRESSING AND EYES. NO DRAINAGE ON DRESSING. HOB ELEVATED 1056-PATIENT COUGHING RAISING LEFT HAND TO FACE NOT OPENING EYES TO VERBAL STIMULI.
--- NOTE | 2020-04-27 11:42 | NUR ---
PATIENT ARRIVED TO MED SURG AT 1130, SPOUSE IN ROOM. REPORT GIVEN BY MANASA SPRING COILING MACHINE SETTER. PATIENT DENIES NAUSEA, REPORTS PAIN 3/10 "BUT NOT UNCOMFORTABLE" AND DRESSING IS CDI. PATIENT IS ON ROOM AIR, NO AIRWAY DIFFICULTIES NOTED. SPOUSE IN ROOM WITH PATIENT.
--- NOTE | 2020-04-27 13:40 | NUR ---
PT SITTING UP IN BED, PT REPORTS WILL BE BACK TONIGHT. PT DENIES CONCERNS AND REPORTS PAIN 4/10 AND NO NAUSEA.
[2020-04-27] MEDS ORDERED: CHOLESTYRAMINE P4 GM PO (14:32)
--- NOTE | 2020-04-27 14:33 | NUR ---
MED REC COMPLETE
--- NOTE | 2020-04-27 18:30 | NUR ---
MD AND FIBERGLASS ROLLER AT PT BEDSIDE, PT BLEEDING OUT SURGICAL SITE. PLAN TO RETURN TO OR. PT REPORT SMALL AMOUNT OF PAIN, AT BEDSIDE.
--- NOTE | 2020-04-27 18:57 | NUR ---
APPROX 1805 PATIENT CALLED, PATIENT HAD SIGNIFICANT NECK SWELLING, BLEEDING TO DRESSING 1/[address] HIGGINBOTHAM, DR. HIGGINBOTHAM IN TO SEE PATIENT IMMEDIATELY. PATIENT TO SURGERY FOR NECK EXPLORATION AT 1835.
--- NOTE | 2020-04-27 19:38 | NUR ---
04/27/201937 Tita Gutierrez 192Jaden PT ARRIVED TO PACU ON RA, RESP EVEN AND UNLABORED. PT DENIES PAIN AND NAUSEA. PT TALKING AND AWAKE. DRESSING CDI WITH SEFERINO DRAIN IN PLACE, NECK RED AND SMALL AMOUNT OF SWELLING NOTED. PLATEN DRIER OPERATOR AND AWARE AND RN WILL CONTINUE TO MONITOR. PT REPORTS "A LITTLE HARD TO BREATH." 1937 PT RESTING IN BED AND PT DENIES ANY CONCERNS ABOUT BREAHTING. PT DENIES PAIN. VSS.
--- NOTE | 2020-04-27 20:16 | NUR ---
back to room via bed from PACU. Dr Chapman in unit
--- NOTE | 2020-04-27 20:49 | NUR ---
Awake, Up to bsc, voided, back to bed, tolerated well. no lightheadness. Neck dressing with old drainage, SEFERINO in place, no drainage. Coop with assessment, IV infusing R hand, SCDS in place. No n/v, tolerating sips of clear liquids at bedside
--- NOTE | 2020-04-27 20:52 | NUR ---
PRODUCT APPLICATIONS ENGINEERROSALVA MUJICA REPORTED THAT DR HIGGINBOTHAM WANTED PT ON CLEAR LIQUID DIET AND ORDERS FOR CBC AND CALCIUM. SOME OF THE ORDERS WERE CANCELED IN THE TRANSFER. ADDED THE ORDERS BACK IN.
--- NOTE | 2020-04-27 21:42 | NUR ---
scheduled tylenol given , 5/10 neck area pain, dressing with old drainage as morris;ier, no changes, radha no drainage. hob elevated, ivf infusing, on room air, coop with assessment, scds in place. trach tray in room
--- NOTE | 2020-04-27 22:42 | NUR ---
HELPED PT TO THE BATHROOM AND BACK TO BED. GOT A SECOND PILLOW FOR HER BACK. BEDSIDE TABLE AND CALL LIGHT IN REACH. TURNED OFF THE LITTLE LIGHT IN THE CORNER PER HER REQUEST. VITALS DONE AND CHARTED.
--- NOTE | 2020-04-27 22:57 | NUR ---
AWAKE, UP TO BR WITH 1PA, VOIDED, BACK TO BED, TOLERATED WELL, NECK AREA DRESSING WITH OLD DRAINAGE, NO CHANGES, SEFERINO WITH NO DRAINAGE. HOB ELEVATED, ON ROOM AIR, TRACH TRAY IN ROOM ., NO C/O PAIN, IVF INFUSING, SCDS IN PLACE, TOLERATING CLEAR LIQUIDS WELL.
--- NOTE | 2020-04-28 00:07 | NUR ---
AWAKE, NECK DRESSING WITH OLD DRAINAGE, RADHA BULS WITH NO DRAINAGE. UP TO BR, VOIDED, BACK TO BED, TOLERATED WELL, IVF INFUSING W/O PROBLEMS, SCDS IN PLACE, .TOLERATAING CLEAR FLUIDSA, NO EMESIS, CALL LIGHT AT BEDSDEI
--- NOTE | 2020-04-28 02:13 | NUR ---
pt medicated with norco 7.5m po 2 tabs 5/10 throat pain, anxious reassured, calmed down, turns around in bed, hob elevated, no resp distress,, on room air. call light and fluids atbedside
--- NOTE | 2020-04-28 04:43 | NUR ---
UP TO BR, VOIDED, BACK TO BED, 1PA. NECK DRESSING WITH OLD DRAINAGE, RADHA TUBE WITH SMALL AMOUNT OF SANGUINEOUS DRAINAGE IN TUBE BUT NOT ON BULB. NO C/O PAIN, ON ROOM AIR, HOB ELEVATED. IVF INFUSING, NO C/O ADVERSE REACTION TO ABX. SCDS IN PLACE. COOP. USES CALL LIGHT, NO N/V
--- NOTE | 2020-04-28 06:27 | NUR ---
Awakes easily, no distress, on room air, neck dressing with old drainage, anca tube with small amount of sanguineous drainage in tube but not in bulb. afebrile, ivf infusing, no c/o adverse reaction to abx. toleratin clear liquids, no n/v. scds in place. uses call lihgt appropriately. Up to br several times, voiding QS, 1PA. am scheduled Tylenol held as pt reaceived 2 norco tabs mid shift and 1 norco tab this am. explained to pt, cooperative. Pt very anxious at begining of shift, reassured, calmer. "I have anxiety disorder stated" calmer, uses call light appropriately, IS at bedside
--- NOTE | 2020-04-28 07:25 | NUR ---
RECEIVED REPORT FROM KARI BLACKWELL. PT AWAKE AND ASKING QUESTIONS APPROPRIATELY. PT HAS NO NEEDS AT THIS TIME
--- NOTE | 2020-04-28 08:25 | NUR ---
in pts room to give morning meds. pt requesting to not wear scds anymore, discussed with pt that if she wants them off that she needs to ankle pumps. pt states that she can do this every commercial as she watches tv. pt up to restroom with no problem. pt states no pain at this time. airway is clean with minimal swelling in the neck area
--- NOTE | 2020-04-28 08:39 | NUR ---
PATIENT WASHED HER FACE AND DID HER ORAL CARE. PATIENT SAID SHE WOULD LIKE TO DO A BED BATH LATER.
--- NOTE | 2020-04-28 09:15 | NUR ---
Spoke with Desire. Denies pain or complaint. States she is retired and lives with her spouse near [place]. Has good support at home and does not use any DME. Two steps into 1 story home. Unsure if she will get to go home today as she had some bleeding last night. States she feels safe to go home as spouse will be with her.
--- NOTE | 2020-04-28 10:02 | NUR ---
DISCUSSED PTS CONDITION WITH THAT PT IS HAVING TROUBLE SWALLOWING AND THAT HER BP IS HIGH. PUT IN NEW ORDERS AT THIS TIME
--- NOTE | 2020-04-28 11:12 | NUR ---
PT IS ALERT, ORIENTED AND SITTING UP IN BED. PT STATED THAT SHE HAD A ROUGH NIGHT, BP UP AND ANXIETY IS INCREASING. PT MENIONED THAT MEDS PT WAS USING BEFORE SURGERY HAVE BEEN HELD. PT STILL SEEMS TO BE DEALING APPROPRIATELY. ROSALVA MARTINS IN, GAVE BLESSING AND G.POST
--- NOTE | 2020-04-28 13:03 | NUR ---
pt given scheduled tylenol 02/24 at this time
--- NOTE | 2020-04-28 18:18 | PATH ---
[facility] [address] [place], [place] [address] Signed SPECIMEN(S): A THYROID, TOTAL SPECIMEN SOURCE: A. 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 - Tumor focality: Unifocal. - Tumor laterality: Right lobe. - Tumor size: 8 mm. - Margins: Uninvolved by carcinoma. - Angioinvasion: Not identified. - Lymphatic invasion: Not identified. - Extrathyroidal extension: Not identified. - Regional lymph nodes: One perithyroidal lymph node with no evidence of malignancy (incidental). - Pathologic stage classification (pTNM, AJCC 8th edition): pT1a, pN0. - Background thyroid with chronic lymphocytic thyroiditis and adenomatous hyperplasia. - One parathyroid gland with no histopathologic abnormality. COMMENT: As part of [facility] Quality Improvement Program, this case was reviewed by another member of our pathology staff. NAL:NRT:viky:C1NR MICROSCOPIC EXAMINATION: Histologic sections of all submitted blocks are examined by light microscopy. These findings, together with the gross examination, support the pathologic diagnosis. GROSS DESCRIPTION: The specimen, labeled "AN, thyroid, total," is received in formalin and consists of 9 g total thyroid that measures 5.0 x 3.9 x 0.7 cm. The right lobe measures 4.0 x 1.7 x 0.9 cm. The left lobe measures 4.0 x 2.0 x 0.7 cm. The isthmus measures 1.1 x 1.5 x 0.5 cm. The external surface is violaceous and smooth. No possible lymph nodes or PATIENT NAME: SELENA WISE PATHOLOGY DATE OF : 55 REPORT #: [id number] PHYSICIAN: DOLORES PATHOLOGY PCP: KRISTAL URENA MD REPORT IS CONFIDENTIAL AND NOT TO BE RELEASED WITHOUT AUTHORIZATION [facility] [address] [place] [address] Signed parathyroid tissue are grossly identified. The specimen is inked. Sectioning through the specimen reveals three ill-defined, white-yellow nodules within the left lobe that measure 0.2, 0.3 and 0.4 cm in greatest dimension. The largest nodule abuts external surface. The remainder of the tissue is beefy red-brown and unremarkable. The specimen is entirely and sequentially submitted in 12 cassettes. Cassette summary: (A1-A6) the right lobe, entirely submitted (A7-A11) the left lobe, entirely submitted, three nodules in cassettes (A7-A8) (A12) isthmus, entirely submitted JS (under the direct supervision of a pathologist) The Gross Description was prepared using a voice recognition system. The report was reviewed for accuracy; however, sound-alike word errors, addition and/or deletions may occur. If there is any question about this report, please contact Client Services. PERFORMING LABORATORY: The technical component was performed by [facility] [address] (Human Resource Manager: Wendy Garza MD; CLIA# [id number]). [facility] [address] [address] (CLIA# [id number]). Diagnostician: Linsey Winkler MD Pathologist Electronically Signed 04/28/2020 Copies: ~ PATIENT NAME: SELENA WISE PATHOLOGY DATE OF : 55 REPORT #: [id number] PHYSICIAN: DOLORES PATHOLOGY PCP: KRISTAL URENA MD REPORT IS CONFIDENTIAL AND NOT TO BE RELEASED WITHOUT AUTHORIZATION
--- NOTE | 2020-04-28 19:00 | NUR ---
SHIFT REPORT RECEIVED FROM DAYSMNFT ROSALVA MARTINS AT BEDSIDE. PT AWAKE AND RESTING IN BED, IV FLUIDS INFUSING AND SITE WNL. PT DENIES NEEDS OR CONCERNS. CALL LIGHT IN REACH.
--- NOTE | 2020-04-28 20:40 | NUR ---
ASSESSMENT COMPLETE, SCHEDULED MEDS GIVEN. WILL HOLD SCHEDULED CARDIAC MED UNTIL CLOSER TO 2300 PT WAS RESTRTED ON MED IN AFTERNOON. AERONAUTICAL ENGINEERING OFFICER ABRAM AWARE. DRESSING INTACT, NO TENSE HEMATOMA NOTED. WILL MONITOR. VSS, PT DENIES PAIN. CALL LIGHT IN REACH.
--- NOTE | 2020-04-28 23:00 | NUR ---
SHIP SCALER PASSED ALONG A NOTE THAT DR HIGGINBOTHAM CALLED TO HAVE ORDERS PLACED FOR CBC AND CALCIUM IN AM. WILL PLACE ORDERS.
--- NOTE | 2020-04-28 23:13 | NUR ---
SCHEDULED CARDIAC MED GIVEN AT THIS TIME (SEE EMAR). PT DENIES PAIN AND NAUSA. IV FLUIDS INFUSING PER MD ORDERS, SITE WNL. DENIES NEEDS, CALL LIGHT IN REACH.
--- NOTE | 2020-04-29 01:36 | NUR ---
VITALS DONE AND CHARTED. INFORMED HER ROSALVA AVERY.
--- NOTE | 2020-04-29 01:47 | NUR ---
THIS RN IN ROOM TO ANSWER CALL LIGHT. PT REPORTS "MY DRAIN FELL OUT". DRESSING INTACT, 5MLS SEROSANGUINEOUS OUTPUT NOTED FROM RADHA DRAIN. DRAIN ALSO APPEARS INTACT. PT DENIES WET FEELING SHE FELT THE PREVIOUS NIGHT WHEN SHE BEGAN LEAKING FROM SITE. NO LEAKING NOTED. GAUZE APPEARS SALMON IN COLOR FROM OLD DRAINAGE, NO TENSE HEMOTOMA NOTED. DR HIGGINBOTHAM MADE AWARE, NO NEW ORDERS. WILL MONITOR.
--- NOTE | 2020-04-29 03:09 | NUR ---
PT RESTING QUIELTY IN BED, AWOKE BRIEFLY. DENIES NEEDS OR CONCERNS. NO CHANGES TO DRESSING. IV FLUIDS INFUSING, SITE WNL. CALL LIGHT IN REACH.
--- NOTE | 2020-04-29 05:01 | NUR ---
ASSESSMENT COMPLETE, NO NEW CHANGES OR CONCERNS. PT A/OX4, VSS. SCHEDULED TYPENOL AND THYROID MED GIVEN (SEE EMAR). IV FLUIDS INFUSING, SITE WNL. DRESSING REMAINS INTACT, NO NEW SHADOWING, DRAINAGE, OR EDEMA NOTED. PT DENIES DIFFICULTY SWALLOWING. NO ADDITIOANL NEEDS, CALL LIGHT IN REACH.
--- NOTE | 2020-04-29 05:18 | NUR ---
SLEPT OFF AND ON THIS SHIFT, VSS, A/OX4 AND CALLS APPROPERIATELY. RADHA DRAIN FELL OUT DURING THE SHIFT, DR HIGGINBOTHAM AWARE. NO NEW ORDERS. DRESSING INTACT, NO NEW SHADOWING OR DRAINAGE NOTED THROUGHOUT SHIFT. PAIN CONTROLLED WITH SCHEDULED TYLENOL, TRACH KIT IN ROOM, PT DENIES DIFFICULTY SWALLOWING AND NUMBNESS/TINGLING. REGULAR DIET, TOLERATING WELL. ZOFRAN GIVEN X1. IV FLUIDS INFUSING, SITE WNL.
--- NOTE | 2020-04-29 07:44 | NUR ---
Pt awake resting in bed, hob elevated. Pt in on ra, respirations even and unlabored. Dressing to neck intact, small amount of sarosang drainage noted. Light palpation of neck to assess for airway restriction/obstruction; skin is elastic and non restricting. Pt denies any breathing difficulty and or neck restriction and is able to move neck freely. Pt close to RN station. Instructed pt to call staff if she has needs or an onset of distress. Pt reports she is doing well and really wants to go home today. Will touch base with Dr. Chapman when he rounds on pt today.
--- NOTE | 2020-04-29 08:22 | NUR ---
PATIENT SITTING UP IN BED. UPDATED WHITE BOARD. CALL LIGHT WITHIN REACH. NO OTHER NEEDS AT THIS TIME
--- NOTE | 2020-04-29 09:36 | NUR ---
ALEIDA from Dr. Chapman for a one time dose of Xanax 0.5mg po for anxiety.
--- NOTE | 2020-04-29 09:39 | NUR ---
Once time dose of Xanax 0.5mg po given for reports of anxiety. Pt continues to request to go home. Pt denies airway distress. Dressing to neck has sarosang drainage noted, skin elastic. No needs at this time. VS stable, resp even and unlabored. Call light within reach.
[2020-04-29] MEDS ORDERED: TYLENOL EXTRA500 MG PO (11:44)
[2020-04-29] MEDS ORDERED: CALCIUM CARBON200 MG PO (11:46)
[2020-04-29] MEDS ORDERED: LEVOTHYROXINE150 MCG PO (11:46)
--- NOTE | 2020-04-29 11:46 | NUR ---
PATIENT SITTING UP IN CHAIR. IN ROOM. THE FINAL VITAL SIGNS WERE OBTAINED PRIOR TO DISCHARGE FROM THE UNIT.
--- NOTE | 2020-04-29 12:14 | NUR ---
Pt to go home per doc order. ABX due at noon not given as pt ready to leave; provider aware. Pending discharge orders.
--- NOTE | 2020-04-29 12:52 | OR ---
[facility] [address] [place], [place] [address] Signed DATE OF OPERATION: 04/27/2020 SURGEON: Chelsy Higginbotham MD PREOPERATIVE DIAGNOSES: 1. Hyperthyroidism chronically controlled with methimazole. 2. Chronic diarrhea, now controlled. POSTOPERATIVE DIAGNOSES: 1. Hyperthyroidism chronically controlled with methimazole. 2. Chronic diarrhea, now controlled. PROCEDURE: Total thyroidectomy. ANESTHESIA: General endotracheal; Joan Rao CRNA. INDICATION: This 65-year-old white woman is a patient of Dr Espinal and under the care additionally of Dr. Carrasco in [place], ppa teacher. She was identified nearly 2 years ago with hyperthyroidism without associated goiter. She was treated primarily with methimazole with normalization of her thyroid function test. At the onset of her hyperthyroidism, she did have a rather significant protracted diarrhea. This has been a persistent problem. She came into my evaluation for her diarrhea. It was noted that she has had cholecystectomy in the past. Colonoscopy was essentially normal. Her thyroid function tests are in the normal range including TSH and only slightly elevated T3. Consideration is made that her hyperthyroidism has contributed to her diarrhea problem. She has achieved control recently with use of Questran (cholestyramine). A long-term plan for management of the hyperthyroidism has been outlined by Dr. Carrasco including option of radioactive iodine ablation versus thyroidectomy. For reasons that are quite unclear, the patient has a strong aversion to a radioactive iodine approach and thyroidectomy has been offered. The risks of bleeding, infection, recurrent or external laryngeal nerve injury, permanent hypoparathyroidism, and other unforeseen complications have been reviewed with her in detail. She understands and wished to proceed. Electronically Signed By: CHELSY HIGGINBOTHAM MD 04/29/20 1252 PATIENT NAME: SELENA WISE OPERATIVE REPORT DATE OF : 55 REPORT #: [id number] PHYSICIAN: CHELSY HIGGINBOTHAM MD PCP: KRISTAL ESPINAL MD REPORT IS CONFIDENTIAL AND NOT TO BE RELEASED WITHOUT AUTHORIZATION [facility] [address] [place], [place] [address] Signed FINDINGS: The thyroid was rather small overall. There was certainly no goiter. The gland was chronically scarred as well. It was a challenging operation --more so than usual on that basis alone. Meticulous care was maintained to preserve parathyroid glands. An right inferior parathyroid gland was identified and preserved and a left upper pole gland as well and it was believed a left lower pole, small gland has been preserved and a likely right upper pole parathyroid gland. A very small nubbin of thyroid tissue is retained in the region of the ligament of Craft bilaterally. There were no known complications. DESCRIPTION OF PROCEDURE: The patient was brought to the operating room and given a general endotracheal anesthetic. Slight neck extension was applied using a shoulder roll and mild neck extension. Preoperative antibiotic Ancef was given and sequential compression device stockings used. The neck was prepared with a chlorhexidine solution and draped sterilely. A natural skin crease was chosen for incision site. The incision was placed in the natural skin crease extending from medial borders of the sternocleidomastoid muscle. Dissection was carried through the dermis sharply and ultimately with electrocautery for hemostasis. The platysmal layer was divided and superior and inferior flaps developed with blunt and electrocautery dissection. Gelpi retractors were placed in the midline, the avascular plane identified and incised elevating the sternohyoid and subsequently the sternothyroid muscle. The thyroid gland itself was relatively small overall, did not have a malignant appearance in a way and was chronically scarred. Dissection was began on the left side first, mobilizing the thyroid using sharp dissection dividing the loose areolar tissue. The superior polar vessels were individually ligated. Given the chronic scarring and so forth more clips than usual were used in lieu of silk ties, which were also used to provide precise security of the vessels. The inferior pole was similarly dissected free. It had a chronic inflammatory appearance inferiorly with thyroid tissue diffusely blending into surrounding soft tissue including fatty tissue. The left lobe was sequentially rolled toward the midline. The posterior elements were freed and what appeared to be a parathyroid gland inferiorly and superiorly . Care was taken in rotating the thyroid to the midline to avoid entrapment of recurrent laryngeal nerve. The ligament of Craft was divided. Hemostasis assured with meticulous care, ultimately attaining the avascular plane in the pretracheal space. Electronically Signed By: CHELSY HIGGINBOTHAM MD 04/29/20 1252 PATIENT NAME: SELENA WISE OPERATIVE REPORT DATE OF : 55 REPORT #: [id number] PHYSICIAN: CHELSY HIGGINBOTHAM MD PCP: KRISTAL ESPINAL MD REPORT IS CONFIDENTIAL AND NOT TO BE RELEASED WITHOUT AUTHORIZATION [facility] [address] [place] [id number] Signed Attention was then turned towards the right side. With similar technique, the right lobe was mobilized. The more prominent right lower pole parathyroid gland was left in situ with a small amount of thyroid tissue as well. Avoidance of the tracheoesophageal groove proper in this area was also undertaken and avoidance of extensive dissection in the tracheoesophageal groove area so as to avoid recurrent laryngeal nerve injury. The superior pole had been mobilized in a similar way. Again, additional clips more than usual were applied to provide meticulous hemostasis. Again, the ligament of Craft was divided sharply secured with minimal amounts of electrocautery attaining the pretracheal avascular plane. The specimen was then removed. Noted was a pyramidal lobe that extended about an inch and a half also excised fully. Irrigation was undertaken. Hemostasis was good but some Priya was additionally applied. Additional agent was applied to the raw surfaces of the ligament of Craft and plans made for closure. The strap muscles were reapproximated with interrupted 2-0 Vicryl as was the platysmal layer. The skin was closed in a running subcuticular 3-0 Vicryl. Steri-Strips were applied as was a silver sponge dressing. The patient was carefully extubated showing no sign of respiratory distress or other problem. She was taken to the recovery room in good condition. Blood loss was less than 25 mL in aggregate. Sponge, needle, and instrument counts were reported as correct x3. MD WENDI Braga/JENL /[id number] cc: MD Nyasia Garcia MD Copies: KRISTAL ESPINAL MD Electronically Signed By: CHELSY HIGGINBOTHAM MD 04/29/20 1252 PATIENT NAME: SELENA WISE OPERATIVE REPORT DATE OF : 55 REPORT #: [id number] PHYSICIAN: CHELSY HIGGINBOTHAM MD PCP: KRISTAL ESPINAL MD REPORT IS CONFIDENTIAL AND NOT TO BE RELEASED WITHOUT AUTHORIZATION [facility] [address] [place], [place] [address] Signed NYASIA CARRASCO MD ~ Electronically Signed By: CHELSY HIGGINBOTHAM MD 04/29/20 1252 PATIENT NAME: SELENA WISE OPERATIVE REPORT DATE OF : 55 REPORT #: [id number] PHYSICIAN: CHELSY HIGGINBOTHAM MD PCP: KRISTAL ESPINAL MD REPORT IS CONFIDENTIAL AND NOT TO BE RELEASED WITHOUT AUTHORIZATION
--- NOTE | 2020-04-29 12:52 | OR ---
[facility] [address] [place], [place] [address] Signed DATE OF OPERATION: 04/27/2020 SURGEON: Chelsy Higginbotham MD PREOPERATIVE DIAGNOSES: 1. Postoperative neck hematoma with active bleeding. 2. Status post total thyroidectomy for hyperthyroidism earlier in day. 3. Underlying difficult airway. POSTOPERATIVE DIAGNOSES: 1. Postoperative neck hematoma with active bleeding. 2. Status post total thyroidectomy for hyperthyroidism earlier in day. 3. Underlying difficult airway. 4. Arterial bleeding vessel in the sternohyoid muscle, left upper neck. PROCEDURES PERFORMED: 1. Evacuation of neck hematoma and control of arterial bleeder with suture ligation. 2. Placement of drain and irrigation. ANESTHESIA: Intravenous sedation with ketamine; Joan Kay CRNA. DRAIN: A 7 mm Juan M. INDICATIONS: This 65-year-old white woman has longstanding hyperthyroidism, treated with methimazole. Earlier this morning, she underwent total thyroidectomy. Findings at operation included a somewhat scarred and normal to small sized thyroid gland with a fair amount of vascularity associated with it. Total thyroidectomy was performed without problem and the field was dry enough that even a drain was not indicated. She had been getting along well during the day, but at the end of the day at approximately 6 p.m., had sudden onset of swelling of the neck and a hematoma developing. She did not have airway compromise, hoarseness, or hypotension. I was notified by nurse Arabella Corona RN and Tita Gutierrez RN of this finding and promptly appeared at the bedside where the hematoma was noted to be sizable and bilateral. Although she did not have airway compromise, the wound was opened at the bedside and clot evacuated. There appeared to be persistent ongoing oozing of blood. The wound was Electronically Signed By: CHELSY HIGGINBOTHAM MD 04/29/20 1252 PATIENT NAME: SELENA WISE OPERATIVE REPORT DATE OF : 55 REPORT #: [id number] PHYSICIAN: CHELSY HIGGINBOTHAM MD PCP: KRISTAL ESPINAL MD REPORT IS CONFIDENTIAL AND NOT TO BE RELEASED WITHOUT AUTHORIZATION [facility] [address] [place], [place] [address] Signed packed and she was promptly returned to the operating room for exploration on that basis. Her was present during the course of all of this and the patient was alert and oriented throughout. Administrative consent was obtained for this exploration given expediency of need for operative control. FINDINGS: She is known to have an underlying difficult airway. A GlideScope was used for intubation earlier in the day. She did not have airway compromise. Under IV sedation alone, the wound was opened and explored and some clot removed. She was found to have bleeding in the superior left aspect of the wound and arterial bleeder indeed was identified as associated with the muscle of the sternohyoid muscle itself. This was secured with suture. The remaining wound was explored showing no sign of untoward bleeding. There were few areas of oozing of the dermis, which were secured with electrocautery. Although there was no sign of ongoing bleeding or oozing, a 7 mm flat Juan M drain was placed in the subplatysmal space. DESCRIPTION OF PROCEDURE: The patient was ushered to the operating room in advance of the operating crew arrival and placed on the stretcher. Continuous attendance to the patient by myself was undertaken and good hemostasis with packing of the wound with gauze was noted. Once the truck manager and other team members arrived, the neck was prepared expediently with Betadine solution. Intravenous sedation with ketamine alone was initiated initially and the platysmal layer more fully opened. Evacuation of some clot was undertaken. Careful suctioning with loupe magnification and headlight illumination and better lighting allowed for good evaluation of the bleeding source. . The bleeding appeared to come from the left side of the neck in the superior aspect. [employer] retractors were used to provide exposure and within the substance of the sternothyroid muscle was the site of bleeding. Further examination showed there to be small artery that was episodically pumping. This was secured with a tonsil clamp and definitively secured with a 4-0 Vicryl suture. At this point, there was no sign of ongoing bleeding or other problems. Copious irrigation was undertaken of the wound and examination of the right and left sides was noted. The bleeding did not appear to be below the strap muscles in the midline or in any other area. Hemostasis of the dermis was assured with electrocautery. Once completely sure of good hemostasis, a 7 mm flat Juan M drain was placed in the subplatysmal space. The platysma was reapproximated with interrupted 3-0 Vicryl. Steri-Strips were applied to the skin to secure it. The drain was not sewn into place, but secured rather with a large OpSite. There appeared to be good hemostasis. No sign of ongoing bleeding was seen. Blood loss in aggregate in the operating room would be considered less than 100 Electronically Signed By: CHELSY HIGGINBOTHAM MD 04/29/20 1252 PATIENT NAME: SELENA WISE OPERATIVE REPORT DATE OF : 55 REPORT #: [id number] PHYSICIAN: CHELSY HIGGINBOTHAM MD PCP: KRISTAL ESPINAL MD REPORT IS CONFIDENTIAL AND NOT TO BE RELEASED WITHOUT AUTHORIZATION [facility] [address] [place], [place] [address] Signed mL. This was independent of blood loss on the regular nursing floor, which was at least much. She tolerated the procedure well with ketamine sedation only and did not require intubation. MD WENDI Braga/GUERITA /[id number] cc: Kristal Espinal MD Copies: KRISTAL ESPINAL MD ~ Electronically Signed By: CHELSY HIGGINBOTHAM MD 04/29/20 1252 PATIENT NAME: SELENA WISE OPERATIVE REPORT DATE OF : 55 REPORT #: [id number] PHYSICIAN: CHELSY HIGGINBOTHAM MD PCP: KRISTAL ESPINAL MD REPORT IS CONFIDENTIAL AND NOT TO BE RELEASED WITHOUT AUTHORIZATION
--- NOTE | 2020-05-02 10:11 | DS ---
[facility] [address] [place], [place] [address] Signed ADMISSION DATE: 04/27/2020 DISCHARGE DATE: 04/29/2020 REASON FOR ADMISSION: This 65-year-old white woman is a patient Dr. Chelsy Espinal and additionally patient of Dr. Nyaisa Carrasco in [facility] (order dispatcher). She was identified nearly 2 years ago with hyperthyroidism without associated goiter. She has had small nodules noted of the right thyroid lobe. She was treated with methimazole with normalization of her thyroid function test. At the onset of her hyperthyroidism, she did have rather significant protracted diarrhea. This has been a persistent problem. I recently saw her in evaluation for the diarrhea. Her thyroid function tests were noted to be normal with only slightly elevated T3 level while on methimazole. It was uncertain if the diarrhea was related to that or to other factors including the possibility of a choleretic diarrhea related to prior cholecystectomy. She recently underwent colonoscopy by me, which was essentially normal. No sign of microscopic colitis or other etiology for her diarrhea and was treated empirically with Questran, which has been beneficial. A definitive treatment of her hyperthyroidism has been presented to her in the past by Dr. Carrasco, including the possibility of radioactive iodine ablation versus surgical intervention. The patient has many concerns regarding radioactive iodine treatment, though it is certainly likely to be safe and prefers to undergoes thyroidectomy. She is admitted for that purpose at this time. PERTINENT PHYSICAL EXAMINATION: GENERAL: Showed a pleasant white woman without signs of overt hyperthyroidism (tremulousness, exophthalmos, etc.). NECK: Showed no palpable abnormality. She had no goiter. Trachea is midline. She had no hoarseness. CHEST: Clear. HEART: Regular without murmur. ABDOMEN: Soft and flat. EXTREMITIES: Without clubbing, cyanosis, or edema. HOSPITAL COURSE: On April 27, 2020, she underwent total thyroidectomy. The thyroid was found to be somewhat small and chronically inflamed with a fair amount of dense adhesive change locally. A right lower pole parathyroid and right upper pole parathyroid gland were easily identified and preserved. The left side showed a likely lower pole parathyroid Electronically Signed By: CHELSY HIGGINBOTHAM MD 05/02/20 1011 PATIENT NAME: SELENA WISE DISCHARGE SUMMARY DATE OF : 55 REPORT #: [id number] PHYSICIAN: CHELSY HIGGINBOTHAM MD PCP: KRISTAL ESPINAL MD REPORT IS CONFIDENTIAL AND NOT TO BE RELEASED WITHOUT AUTHORIZATION [facility] [address] [place], [place] [address] Signed in the upper area uncertain. She tolerated the thyroidectomy well. A drain was not required. She had no hoarseness or other problems in recovery room and appeared to be doing well. Throughout the day on the day of operation, she was completely well; however, in the evening about 06:15 p.m., she had sudden onset of swelling in her neck and clinical findings of a hematoma. She did not have stridor or emergency airway obstruction; however, I elected to decompress small hematoma at the bedside. She was then taken to the operating room. An exploration showed a small arterial bleeding vessel in the muscle of the sternohyoid muscle, this was secured with a suture. Irrigation was undertaken and evacuation of any residual hematoma. A small drain was placed laterally. Her postoperative calcium level was noted to be 8.3 (normal 8.4 and above) and the second postoperative day was 8.3, somewhat decreased. She had no numbness or tingling symptoms. She had no further signs of bleeding. Her drain was removed late at night prior to discharge, the patient inadvertently explanted herself, there was no formation of hematoma or other problem. At the time of discharge, she appears to be doing well overall. A small amount of ecchymosis of the wound is noted. Steri-Strips have been replaced and the drain of course is out. She has no numbness or tingling, though she will be prescribed Tums tablets to take routinely and more if she should develop symptoms of hypocalcemia. It is my intention to see her back in approximately 4 weeks postop and prior to her visit to have a set of thyroid function tests and a calcium level. If she does have persistent symptoms of actual hypocalcemia, she will call me up, and we will re-evaluate sooner of course. 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 She is aware of this as is her . No further specific therapy will be advised on that, but it will be reviewed at [facility] anyway. DISCHARGE MEDICATIONS: 1. Tylenol Extra Strength 500 mg two tablets p.o. q.6 hours as needed for pain, #30. 2. Calcium carbonate tablets 200 mg two tablets p.o. q.6 hours and additional if numbness or tingling in her lips or fingers, #60 refill. 3. Synthroid 150 mcg tablets p.o. daily, #60. 4. She will continue usual medications of metoprolol 100 mg p.o. b.i.d., lisinopril hydrochlorothiazide 08/28.5 two p.o. daily. 5. Simvastatin 40 mg p.o. at bedtime. 6. Eszopiclone 2 mg tablet at bedtime as needed for sleep. Electronically Signed By: CHELSY HIGGINBOTHAM MD 05/02/20 1011 PATIENT NAME: SELENA WISE DISCHARGE SUMMARY DATE OF : 55 REPORT #: [id number] PHYSICIAN: CHELSY HIGGINBOTHAM MD PCP: KRISTAL ESPINAL MD REPORT IS CONFIDENTIAL AND NOT TO BE RELEASED WITHOUT AUTHORIZATION [facility] [address] [place], [place] [address] Signed 7. Alprazolam 0.5 mg as needed q.8 hours for symptoms of anxiety. 8. Flonase Allergy Relief spray two sprays each nostril for allergies. 9. Lactate 3000 unit tablet one p.o. t.i.d. with meals. 10. Zyrtec 10 mg p.o. daily as needed. 11. Cholestyramine (Questran 4 g pack) 4 g p.o. t.i.d. for diarrhea problems. DISCHARGE DIAGNOSES: 1. Hyperthyroidism without associated goiter, greater than 18 months, methimazole therapy. 2. Status post total thyroidectomy on April 27, 2020 with postoperative hematoma development, requiring evacuation. 3. Incidental finding of micropapillary carcinoma, right thyroid lobe. 4. Hypertension. 5. Anxiety. 6. Seasonal allergies. 7. Dyslipidemia. 8. Hypertension. FOLLOWUP PLAN: She will see me in the office in one month with lab studies for thyroid functions and calcium prior to the visit. MD WENDI Braga/GUERITA /[id number] cc: Nyasia Carrasco MD Copies: NYASIA CARRASCO MD ~ Electronically Signed By: CHELSY HIGGINBOTHAM MD 05/02/20 1011 PATIENT NAME: SELENA WISE DISCHARGE SUMMARY DATE OF : 55 REPORT #: [id number] PHYSICIAN: CHELSY HIGGINBOTHAM MD PCP: KRISTAL ESPINAL MD REPORT IS CONFIDENTIAL AND NOT TO BE RELEASED WITHOUT AUTHORIZATION
== END 2020-04-29 12:35 | disposition home or self-care (01) | DRG 626 ==
LOC: DSVR 04-27 07:00 → MS 04-27 07:00
PROVIDERS: ADMIT Surgery
PROC: 0GTG0ZZ Resection of Left Thyroid Gland Lobe, Open Approach (ICD-10-PCS; principal; 2020-04-27 08:15)
PROC: 0GTH0ZZ Resection of Right Thyroid Gland Lobe, Open Approach (ICD-10-PCS; 2020-04-27 18:45)
PROC: 0W360ZZ Control Bleeding in Neck, Open Approach (ICD-10-PCS; 2020-04-27 18:45)
DX: E05.00 Thyrotoxicosis with diffuse goiter without thyrotoxic crisis or storm (principal); M96.841 Postprocedural hematoma of a musculoskeletal structure following other procedure; K52.9 Noninfective gastroenteritis and colitis, unspecified; I10 Essential (primary) hypertension; C73 Malignant neoplasm of thyroid gland; K21.9 Gastro-esophageal reflux disease without esophagitis; Z79.899 Other long term (current) drug therapy; Z88.5 Allergy status to narcotic agent; Z88.2 Allergy status to sulfonamides; Y83.6 Removal of other organ (partial) (total) as the cause of abnormal reaction of the patient, or of later complication, without mention of misadventure at the time of the procedure; Y92.239 Unspecified place in hospital as the place of occurrence of the external cause
CPT/HCPCS: 00320; 36415; 82310; 85025; 88307; 94760; A9270; J0330; J0690; J1100; J1200; J1790; J1885; J2001; J2250; J2405; J2550; J2704; J3475; J7121

== ENCOUNTER 2024-01-07 05:46 | Day surgery (SDC) | payer MEDICARE, OTHER ==
[2023-12-17 10:33] VITALS: BP 187/80
--- NOTE | 2023-12-17 11:12 | NUR ---
BP 187/80 DURING PRE ADMIT APPOINTMENT. RECHECKED AFTER 10 MINUTES 176/87. REPORTED TO DR. SIERRA'S OFFICE. THEY WILL RELAY INFO TO DR. DR. SIERRA OFFICE CALLED BACK. THEY ARE GOING TO INSTRUCT THE PATIENT TO SEE HER PCP FOR EVALUATION PRIOR TO HER SURGERY. THEY WILL NOTIFY PATIENT AND SEND INFO TO SURGERY SCHEDULING IF SURGERY IS TO BE POSTPONED.
[~2024-01-07] VITALS: Ht 152.4 cm; Wt 77.0 kg
--- NOTE | ~2024-01-07 | OR ---
[facility] [address] [facility] [place], [place] [address] Draft DATE OF OPERATION: 01/07/2024 SURGEON: Aisha Stokes DPM PREOPERATIVE DIAGNOSIS: Hallux rigidus, left foot 1st MTPJ. POSTOPERATIVE DIAGNOSIS: Hallux rigidus, left foot 1st MTPJ. PROCEDURE: First MTPJ arthroplasty with silastic implant. ALL TERRAIN VEHICLE TECHNICIAN: Bishnu Pascual DPM. ANESTHESIA: Local with MAC, it was a total of 14 mL of 1:1 mixture of 2% lidocaine plain and 0.5% ropivacaine. NURSE SOFTWARE TOOLS ENGINEER: Jas Rehman. ESTIMATED BLOOD LOSS: Less than 5 mL or minimal. HEMOSTASIS: With an ankle tourniquet. MATERIALS UTILIZED: 3-0 Vicryl, 4-0 Vicryl, 5-0 nylon and 1 silastic implant from [employer]. PROCEDURE IN DETAIL: The patient was brought into the operating room and placed upon the operating table in the supine position. Following IV sedation, local anesthesia was administered above the patient left medial foot. The left foot was then scrubbed, prepped and draped in usual sterile technique. An Esmarch bandage was then utilized to exsanguinating the patient's left foot and then left wrapped around the ankle to act as tourniquet. Attention was then directed to the dorsal aspect of the patient's left first metatarsophalangeal joint where a linear incision was performed PATIENT NAME: SELENA WISE OPERATIVE REPORT DATE OF : 55 REPORT #: [id number] PHYSICIAN: AISHA STOKES DPM PCP: ARVIND JIMENEZ MD REPORT IS CONFIDENTIAL AND NOT TO BE RELEASED WITHOUT AUTHORIZATION [facility] [address] [place], [place] [address] Draft both parallel and medial to the tendon of the extensor hallucis longus. The incision was then deepened through the subcutaneous tissue with care being taken to identify and retract vital neurovascular structures. All bleeders were cauterized and ligated as necessary. A #64 blade was utilized to perform sharp dissection down to the level of the joint capsule where a linear capsulotomy was performed in line with the skin incision. The capsule structure was then reflected both medially and laterally exposing the head of the first metatarsal as well as the base of the proximal phalanx. It should be noted that through this dissection that scar tissue was encountered from previous surgery. With release of the joint capsule, some joint mice or bone fragment was found within the joint capsule itself. Next, a sagittal saw was utilized to resect the articular surface of the head of the first metatarsal as well as the base of the proximal phalanx. Also, note that at the articular site that there was a chalky substance identified that had the appearance of possible gout. Sample of this chalky substance was placed in normal saline and sent to Pathology for review. With completion of the osteotomy, spacer was utilized to determine proper implant sizing. The first metatarsal head and remaining base of the proximal phalanx were then prepared for the implant by removing exostosis formation that was still present around the circumference of the adjacent bone portions. The area was then flushed with copious amounts of sterile normal saline. K-wire was inserted utilizing the guide into the shaft of the first metatarsal. A reamer was then utilized to create a pocket into the medullary canal. This same procedure was then performed at the base of the first digit proximal phalanx thus creating a pocket for the implant to rest. A trial implant was then placed within the articular surface. Good positioning of the first digit was observed. Good approximation with the bone and the implant interface was identified. The trial implant was removed. The area was again flushed with copious amounts of sterile normal saline. Grommets were placed and fit flush against the bone and the silastic implant was then placed and a good articulation was observed as well as good positioning of the first digit and good approximation of both the implant and the grommets was identified. The implant appeared to be stable to stay in place easily. The open joint region was then closed utilizing 3-0 Vicryl to reapproximate and coapt capsule. Subcutaneous tissue was closed utilizing 4-0 Vicryl and skin was reapproximated and coapted utilizing 5-0 nylon. Postoperative injection consisting of 5 ml of 0.5% ropivacaine and 1 mL of dexamethasone phosphate 4 mg/mL was injected about the first metatarsophalangeal joint region. The surgical site was then dressed with Betadine soaked adaptic, fluff gauze, rolled gauze and Coban. The ankle tourniquet was removed. Prompt hyperemic response was noted to all digits of the patient's left foot. The patient was then escorted to the recovery area for a period of postoperative monitoring with vital signs stable. Following the period of postoperative monitoring, the patient was discharged to home with both written and oral instructions. PATIENT NAME: SELENA WISE OPERATIVE REPORT DATE OF : 55 REPORT #: [id number] PHYSICIAN: AISHA STOKES DPM PCP: ARVIND JIMENEZ MD REPORT IS CONFIDENTIAL AND NOT TO BE RELEASED WITHOUT AUTHORIZATION [facility] [address] [place] [address] Draft CATALINA Blankenship/GUERITA /[id number] Copies: ~ PATIENT NAME: SELENA WISE OPERATIVE REPORT DATE OF : 55 REPORT #: [id number] PHYSICIAN: AISHA STOKES DPM PCP: ARVIND JIMENEZ MD REPORT IS CONFIDENTIAL AND NOT TO BE RELEASED WITHOUT AUTHORIZATION
[~2024-01-07 05:46] MED LIST changes: +AMLODIPINE BESYL5 MG PO; +CALCIUM CARBON200 MG PO; +CELECOXIB200 MG PO; +LACTATED RINGER'S 1,000 ML IV SCH; +LEVOTHYROXINE112 MC1 PO; +LEVOTHYROXINE150 MCG PO; +LOSARTAN POTASS50 MG PO; +TYLENOL EXTRA500 MG PO; +ZYRTEC10 MG PO
[2024-01-07 06:06] VITALS: BP 181/77
[2024-01-07] MEDS ORDERED: LACTATED RINGER'S 1,000 ML IV ONE (06:34)
[2024-01-07] MEDS ORDERED: DEXAMETHASONE SOD PHOS 4 MG/ML VIAL ONE ×2 (06:34→06:37)
[2024-01-07] MEDS ORDERED: FAMOTIDINE 20 MG/ 2 ML VIAL ONE (06:34)
[2024-01-07] MEDS ORDERED: MIDAZOLAM HCL 2 MG/2 ML VIAL ONE (06:34)
[2024-01-07] MEDS ORDERED: KETOROLAC TROMETHAMINE 30 MG/ML VIAL ONE (06:34)
[2024-01-07] MEDS ORDERED: METOCLOPRAMIDE HCL 10 MG/2 ML SDV ONE (06:34)
[2024-01-07] MEDS ORDERED: fentaNYL citrate 100 MCG/2 ML VIAL ONE (06:34)
[2024-01-07] MEDS ORDERED: propofoL 200 MG/20 ML VIAL ONE (06:34)
[2024-01-07] MEDS ORDERED: ondansetron HCL 4 MG/2 ML VIAL ONE (06:34)
[2024-01-07] MEDS ORDERED: BUPIVACAINE HCL 0.5% 30 ML VIAL ONE (06:35)
[2024-01-07] MEDS ORDERED: LIDOCAINE HCL 2% 5 ML SDV ONE (06:35)
[2024-01-07] MEDS ORDERED: LIDOCAINE HCL 2% 20 MG/ML VIAL INJ ONE (06:37)
[2024-01-07] MEDS ORDERED: Ropivacaine HCl 0.5% 30 ML VIAL ONE (06:38)
[2024-01-07] MEDS ORDERED: CEFAZOLIN SODIUM 2 GM/20 ML SYR IV SCH (07:00)
[2024-01-07] MEDS ORDERED: LIDOCAINE HCL 1% 5 ML SDV INJ ONE (07:00)
[2024-01-07] MEDS ORDERED: IBLOOD GLUCOSE TEST STRIP 1 EA TEST VI PRN ×2 (07:00→09:00)
[2024-01-07] MEDS ORDERED: METOPROLOL TARTRATE 5 MG/5 ML VIAL ONE (07:58)
[2024-01-07] MEDS ORDERED: MEPERIDINE HCL 25 MG/1 ML VIAL IV PRN (09:00)
[2024-01-07] MEDS ORDERED: METOCLOPRAMIDE HCL 10 MG/2 ML SDV IV PRN (09:00)
[2024-01-07] MEDS ORDERED: fentaNYL citrate 100 MCG/2 ML VIAL IV PRN (09:00)
[2024-01-07] MEDS ORDERED: ondansetron HCL 4 MG/2 ML VIAL IV PRN (09:00)
[2024-01-07] MEDS ORDERED: droPERidol 5 MG/2 ML VIAL IV PRN (09:00)
[2024-01-07] MEDS ORDERED: NALOXONE HCL 0.4 MG SYR IV PRN (09:00)
[2024-01-07] MEDS ORDERED: PROCHLORPERAZINE EDISYLATE 10 MG/2 ML VIAL IV PRN (09:00)
--- NOTE | 2024-01-07 09:42 | NUR ---
01/07/24 0942 Sri Mccoy 0840-PATIENT ARRIVED TO PACU ON 10L MASK NONAROUSABLE ORAL AIRWAY AND NASAL AIRWAY IN PLACE. O2 SAT 90% PATIENT STARTING TO COUGH NOT REACTIVE TEETH CLENCHED FACE RED. PATIENTS O2 DECREASED TO 81% CHELSY BORDEN AT BEDSIDE SUCTIONING MOUTH BLOOD RETURNED IN CANNISTER. HOB ELEVATED. 02 INCREASED TO 15L MASK 02 SAT INCREASING TO LOWER 90'S AND UP TO 96% AT 0845. DRESSING TO LEFT FOOT CDI ELEVATED ON PILLOW IVF INFUSING. SR 0845-15L MASK 96% RR EVEN REACTIVE OPENING EYES NOT FOLLOWING COMMANDS ORAL AND NASAL AIRWAY REMAIN IN PLACE. SR. 0848-PATIENT BECOMING REACTIVE TO VERBAL STIMULI CHELSY BORDEN AT BEDSIDE ORAL AIRWAY REMOVED. 15L MASK RR EVEN HOB ELEVATED. PATIENT ABLE TO STATE NAME WHEN ASKED REMAINS VERY DROWSY. 0856-PATIENT AROUSING NASAL AIRWAY REMOVED. ORIENTED TO PACU. PATIENT MOVES LOWER EXTREMITIES. -0849-PATIENTS O2 DECREASED TO 1OL MASK 96% RR EVEN. DENIES PAIN OR NAUSEA. PATIENT IS WET NEW BEDDING REPLACED. PATIENT ABLE TO ROLL TO SIDES. UNDERWEAR REMOVED AND PLACED IN BAG. FELIPA CARE PROVIDED. 0854-PATIENT DROWSY DENIES PAIN OR NAUSEA PLACED ON 6L MASK RR EVEN 98% 0856-NASAL AIRWAY REMOVED. 0907-PATIENT AWAKE PLACED ON RA 95% RR EVEN DENIES PAIN OR NAUSEA. 0913-PATIENT AWAKE DENIES PAIN OR NAUSEA. ABLE TO WIGGLE TOES. UP TO BSC WITH RN ASSISTANCE PLACED ON RA 94% RR EVEN. PATIENTS IV SALINE LOCKED. 0919-PATIENT BACK TO BED WITH RN ASSISTANCE VOIDED O2 SAT 84% ENCOURAGED DEEP BREATHING. O2 SAT INCREASED TO 94% RR EVEN. 0932-PATIENTS O2 SAT 90% ON RA ENCOURAGED DEEP BREATHING. HOB ELEVATED 2L NC RR EVEN PLACED INCREASED TO 100% PATIENT AWAKE AND TALKING DENIES PAIN OR NAUSEA.
[2024-01-07 09:52] VITALS: BP 149/66
--- NOTE | 2024-01-07 10:07 | NUR ---
TRINI 0950: PT IS BACK TO DS FROM PACU. SHE IS UP TO THE BEDSIDE COMMODE TO VOID. SHE RONA PAIN OR NAUSEA. SHE IS TOLERATING WATER. IS AT THE BEDSIDE.
[2024-01-07 10:52] VITALS: BP 148/72
--- NOTE | 2024-01-07 11:12 | NUR ---
LE 1050: PT HAS MET ALL CRITERIA TO GO HOME. SHE INDICATES THAT SHE WOULD LIKE TO GO HOME. SHE AND HER ARE GIVEN VERBAL AND WRITTEN DC INSTRUCTIONS. THEY BOTH VERBALIZE UNDERSTANDING. NO QUESTIONS ARE ASKED AT THIS TIME. PT IS EDUCATED ON HOW TO BEST DRESS HERSELF AND TO OPEN HER CURTAIN WHEN SHE IS READY. LE 1100: PT IS TAKEN TO PERSONAL VEHICLE VIA WC. SHE IS ABLE TO TRANSFER HERSELF WITHOUT ISSUES.
--- NOTE | 2024-01-08 13:34 | PATH ---
[facility] [address] [facility] [place], [place] [address] Signed SPECIMEN(S): A LEFT FOOT FIRST MTP JOINT SPECIMEN SOURCE: A. 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 These findings, together with the gross examination, support the pathologic diagnosis. GROSS DESCRIPTION: The specimen, labeled and designated "[place], left foot first MTP joint," is received fresh and consists of multiple fragments of white-stratton soft and friable material/tissue (1.0 x 0.4 x 0.2 cm in aggregate). The specimen is submitted entirely in cassette (A1) and into a container containing 100% EtOH prior to processing to rule out gout per the requisition. VB (under the direct supervision of a pathologist) The Gross Description was prepared using a voice recognition system. The report was reviewed for accuracy; however, sound-alike word errors, addition and/or deletions may occur. If there is any question about this report, please contact Client Services. ADDITIONAL NOTES: Immunohistochemical and/or in situ hybridization studies if performed in this case included appropriate positive controls that reacted as expected. This test was developed and its performance characteristics determined by [facility]. It has not been cleared or approved by the U.S. Food and Drug Administration. The FDA has determined that such clearance or approval is not necessary. This test is used for clinical purposes. It should not be regarded as investigational or for research. [facility] is certified under the PATIENT NAME: SELENA WISE PATHOLOGY DATE OF : 55 REPORT #: [id number] PHYSICIAN: DOLORES ZARAGOZA PCP: ARVIND JIMENEZ MD REPORT IS CONFIDENTIAL AND NOT TO BE RELEASED WITHOUT AUTHORIZATION [facility] [address] [facility] [place] [address] Signed Clinical Laboratory Improvement Amendments of 1988 (CLIA) as qualified to perform high complexity clinical laboratory testing. PERFORMING LABORATORY: Technical component was performed by [facility], [address] [place] [address] (CLIA# [id number]). [facility] - [address] [id number] Diagnostician: Ron Resendiz MD Pathologist Electronically Signed 01/08/2024 Copies: ~ PATIENT NAME: SELENA WISE PATHOLOGY DATE OF : 55 REPORT #: [id number] PHYSICIAN: DOLORES ZARAGOZA PCP: ARVIND JIMENEZ MD REPORT IS CONFIDENTIAL AND NOT TO BE RELEASED WITHOUT AUTHORIZATION
== END 2024-01-07 11:00 | disposition home or self-care (01) ==
LOC: OPS 05:46 → DS 05:46 → OPS 07:30 → DS 07:30 → OPS 11:00
PROVIDERS: ATTEND Podiatrist Foot & Ankle Surgery
PROC: 0SRN0JZ Replacement of Left Metatarsal-Phalangeal Joint with Synthetic Substitute, Open Approach (ICD-10-PCS; principal; 2024-01-07 07:30)
DX: M20.22 Hallux rigidus, left foot (principal); I10 Essential (primary) hypertension; M19.90 Unspecified osteoarthritis, unspecified site; M25.775 Osteophyte, left foot; Z88.5 Allergy status to narcotic agent; Z88.2 Allergy status to sulfonamides
CPT/HCPCS: 01480; 73620; 74300; J0690; J1100; J1885; J2001; J2250; J2405; J2704; J2765; J2795; J3010; J7121; Q9967